=== PATIENT | male | born 1960 | race Caucasian/White ===

== ENCOUNTER 2019-08-11 06:18 | Observation (INO) | payer BC, OTHER ==
[2019-08-11 06:25] LABS: Glucose,Whole Blood 143 mg/dL (75-99)
[2019-08-11] MEDS ORDERED: ASPIRIN 81 MG PO STA (06:33)
--- NOTE | 2019-08-11 06:37 | ED ---
General Adult HPI - General Stated complaint: Near Syncope Time Seen by Provider: 08/11/19 06:26 Source: patient, EMS, RN notes reviewed Mode of arrival: EMS Limitations: no limitations - History of Present Illness Initial comments: This a 59-year-old male presents emergency Department via EMS chief complaint right shoulder pain, difficult breathing, diaphoretic episodes. Patient states that he was at work states that he started having some pain when his right scapula. It is very tight. Patient also states he has pain and right side of his chest Patient states that he tried to stretch it, rubbing against the wall and states that he became very diaphoretic states he did feel very flushed feeling and just not well. Patient went to his office states he sat down symptoms resolved but still does not feel great. Patient states he went back out to work and feels that he did not look well he still has some pain in his right shoulder and states it hurts to take a deep inspiration. Patient denies any significant past medical history though states she does not go to physician a regular basis. He is a daily smoker. He has no complaints of abdominal pain denies any recent long distance traveling no leg pain or leg swelling. - Related Data Home Medications Medication Instructions Recorded Confirmed Carisoprodol [Soma] 350 mg PO HS PRN 06/14/16 06/15/16 HYDROcodone/APAP 7.5-325MG [[place] 1 tab PO Q6HR PRN 06/14/16 06/15/16 7.5-325] Allergies Allergy/AdvReac Type Severity Reaction Status Date / Time No Known Allergies Allergy Verified 06/15/16 07:27 Review of Systems ROS Statement: Those systems with pertinent positive or pertinent negative responses have been documented in the HPI. ROS Other: All systems not noted in ROS Statement are negative. Past Medical History Past Medical History: Musculoskeletal Disorder Additional Past Medical History / Comment(s): back pain History of Any Multi-Drug Resistant Organisms: None Reported Past Surgical History: Orthopedic Surgery Additional Past Surgical History / Comment(s): left hand surg. Past Anesthesia/Blood Transfusion Reactions: No Reported Reaction Smoking Status: Current every day smoker Past Alcohol Use History: Occasional Additional Past Alcohol Use History / Comment(s): smoked on & off since teens- currently 1/2ppd Past Drug Use History: None Reported - Past Family History Mother Family Medical History: No Reported History General Exam General appearance: alert, in no apparent distress Head exam: Present: atraumatic, normocephalic, normal inspection Eye exam: Present: normal appearance, PERRL, EOMI. Absent: scleral icterus, conjunctival injection, periorbital swelling Neck exam: Present: normal inspection, full ROM. Absent: tenderness, meningismus, lymphadenopathy Respiratory exam: Present: normal lung sounds bilaterally. Absent: respiratory distress, wheezes, rales, rhonchi, stridor, chest wall tenderness Cardiovascular Exam: Present: regular rate, normal rhythm, normal heart sounds. Absent: systolic murmur, diastolic murmur, rubs, gallop, clicks GI/Abdominal exam: Present: soft, normal bowel sounds. Absent: distended, tenderness, guarding, rebound, rigid Extremities exam: Present: other (Tenderness to the inferior lateral scapular region patient's full range of motion of upper extremities neurovascular intact) Neurological exam: Present: alert, oriented X3, CN II-XII intact, reflexes normal. Absent: motor sensory deficit Course Vital Signs 08/11/19 08/11/19 06:34 07:43 Temperature 97.7 F Pulse Rate 55 L 62 Respiratory 15 18 Rate Blood Pressure 132/92 120/93 O2 Sat by Pulse 98 98 Oximetry EKG Findings - EKG Comments: EKG Findings:: EKG performed at 17:05 sinus bradycardia rate of 58 [place] 1:30 QRS 98 QT/QTC 406/398 Medical Decision Making - Medical Decision Making Patient will be admitted for near syncopal event, chest pain. Workup this time is negative included negative chest x-ray, troponin EKG. Patient will be placed on heparin repeat cardiac enzymes. - Lab Data Result diagrams: 08/11/19 06:25 08/11/19 06:25 Lab Results 08/11/19 08/11/19 08/11/19 Range/Units 06:25 06:25 06:25 WBC 5.5 (3.8-10.6) k/uL RBC 5.01 (4.30-5.90) m/uL Hgb 16.6 (13.0-17.5) gm/dL Hct 46.8 (39.0-53.0) % MCV 93.4 (80.0-100.0) fL MCH 33.2 (25.0-35.0) pg MCHC 35.5 (31.0-37.0) g/dL RDW 12.4 (11.5-15.5) % Plt Count 173 (150-450) k/uL Neutrophils % 74 % Lymphocytes % 13 % Monocytes % 8 % Eosinophils % 3 % Basophils % 0 % Neutrophils # 4.0 (1.3-7.7) k/uL Lymphocytes # 0.7 L (1.0-4.8) k/uL Monocytes # 0.4 (0-1.0) k/uL Eosinophils # 0.2 (0-0.7) k/uL Basophils # 0.0 (0-0.2) k/uL PT (9.0-12.0) sec INR (<1.2) APTT (22.0-30.0) sec D-Dimer (<0.60) mg/L FEU Sodium 139 (137-145) mmol/L Potassium 4.6 (3.5-5.1) mmol/L Chloride 107 (98-107) mmol/L Carbon Dioxide 24 (22-30) mmol/L Anion Gap 8 mmol/L BUN 18 (9-20) mg/dL Creatinine 1.10 (0.66-1.25) mg/dL Est GFR (CKD-EPI)AfAm 84 (>60 ml/min/1.73 sqM) Est GFR (CKD-EPI)NonAf 73 (>60 ml/min/1.73 sqM) Glucose 149 H (74-99) mg/dL POC Glucose (mg/dL) 143 H (75-99) mg/dL POC Glu Airframe Technician ID Viky, Suze Calcium 9.3 (8.4-10.2) mg/dL Magnesium 2.1 (1.6-2.3) mg/dL Total Bilirubin 1.3 (0.2-1.3) mg/dL AST 26 (17-59) U/L ALT 23 (21-72) U/L Alkaline Phosphatase 50 (38-126) U/L Troponin I (0.000-0.034) ng/mL NT-Pro-B Natriuret Pep pg/mL Total Protein 7.1 (6.3-8.2) g/dL Albumin 4.1 (3.5-5.0) g/dL Lipase 129 (23-300) U/L 1208/11/19 08/11/19 Range/Units 06:25 06:25 06:25 WBC (3.8-10.6) k/uL RBC (4.30-5.90) m/uL Hgb (13.0-17.5) gm/dL Hct (39.0-53.0) % MCV (80.0-100.0) fL MCH (25.0-35.0) pg MCHC (31.0-37.0) g/dL RDW (11.5-15.5) % Plt Count (150-450) k/uL Neutrophils % % Lymphocytes % % Monocytes % % Eosinophils % % Basophils % % Neutrophils # (1.3-7.7) k/uL Lymphocytes # (1.0-4.8) k/uL Monocytes # (0-1.0) k/uL Eosinophils # (0-0.7) k/uL Basophils # (0-0.2) k/uL PT 10.1 (9.0-12.0) sec INR 0.9 (<1.2) APTT 24.8 (22.0-30.0) sec D-Dimer 0.37 (<0.60) mg/L FEU Sodium (137-145) mmol/L Potassium (3.5-5.1) mmol/L Chloride (98-107) mmol/L Carbon Dioxide (22-30) mmol/L Anion Gap mmol/L BUN (9-20) mg/dL Creatinine (0.66-1.25) mg/dL Est GFR (CKD-EPI)AfAm (>60 ml/min/1.73 sqM) Est GFR (CKD-EPI)NonAf (>60 ml/min/1.73 sqM) Glucose (74-99) mg/dL POC Glucose (mg/dL) (75-99) mg/dL POC Glu Airframe Technician ID Calcium (8.4-10.2) mg/dL Magnesium (1.6-2.3) mg/dL Total Bilirubin (0.2-1.3) mg/dL AST (17-59) U/L ALT (21-72) U/L Alkaline Phosphatase (38-126) U/L Troponin I <0.012 (0.000-0.034) ng/mL NT-Pro-B Natriuret Pep 48 pg/mL Total Protein (6.3-8.2) g/dL Albumin (3.5-5.0) g/dL Lipase (23-300) U/L Disposition Clinical Impression: Near syncope, Chest pain Disposition: ADMITTED IP TO THIS HOSP Condition: Fair Referrals: Kenny Maria MD [Primary Care Provider] - 1-2 days
[2019-08-11 06:56] LABS: Basophils % (A) 0 %; Eosinophils # (A) 0.2 k/uL (0-0.7); Eosinophils % (A) 3 %; HCT 46.8 % (39.0-53.0); HGB 16.6 gm/dL (13.0-17.5); Lymphocytes # (A) 0.7 k/uL (1.0-4.8); Lymphocytes % (A) 13 %; MCH 33.2 pg (25.0-35.0); MCHC 35.5 g/dL (31.0-37.0); MCV 93.4 fL (80.0-100.0); Mean Platelet Volume 7.4; Monocytes # (A) 0.4 k/uL (0-1.0); Monocytes % (A) 8 %; Neutrophils % (A) 74 %; Platelet Count 173 k/uL (150-450); RBC 5.01 m/uL (4.30-5.90); RDW 12.4 % (11.5-15.5); WBC 5.5 k/uL (3.8-10.6)
[2019-08-11 07:11] LABS: D-Dimer 0.37 mg/L FEU (<0.60); INR 0.9 (<1.2); Partial Thromboplastin Time 24.8 sec (22.0-30.0); Prothrombin Time 10.1 sec (9.0-12.0)
[2019-08-11 07:18] LABS: Albumin 4.1 g/dL (3.5-5.0); Calcium 9.3 mg/dL (8.4-10.2); Magnesium 2.1 mg/dL (1.6-2.3); Potassium 4.6 mmol/L (3.5-5.1); Total Bilirubin 1.3 mg/dL (0.2-1.3); Total Protein 7.1 g/dL (6.3-8.2)
--- NOTE | 2019-08-11 08:29 | XR ---
EXAMINATION TYPE: XR chest 2V DATE OF EXAM: 08/11/2019 COMPARISON: NONE HISTORY: Sharp right-sided chest pain into shoulder. TECHNIQUE: Frontal and lateral views of the chest are obtained. FINDINGS: There is some chronic parenchymal change without suspicious focal air space opacity, pleur al effusion, or pneumothorax seen. The cardiac silhouette size is within normal limits. The osseou s structures are intact. IMPRESSION: Chronic parenchymal changes without acute pulmonary process.
[2019-08-11] MEDS ORDERED: NITROGLYCERIN SL TABS 0.4 MG TAB SUBLINGUAL PRN (08:43)
[2019-08-11] MEDS ORDERED: HEPARIN SODIUM,PORCINE 5,000 UNIT/ML 1 ML VIAL IV ONE (08:43)
[2019-08-11] MEDS ORDERED: HEPARIN SOD,PORK IN 0.45% NACL 25,000 UNIT in 0.45% NACL 1 250ML.BAG IV SCH (08:45)
[2019-08-11 10:39] LABS: Cholesterol 236 mg/dL (<200); HDL Cholesterol 33 mg/dL (40-60); LDL Cholesterol,Calculated 164 mg/dL (0-99); Triglycerides 197 mg/dL (<150)
--- NOTE | 2019-08-11 10:54 | P.CRDCN ---
History of Present Illness History of present illness: HISTORY OF PRESENTING ILLNESS This is a pleasant 59-year-old male past medical history significant for chronic nicotine dependence. He denies prior history of coronary artery disease, hypertension, dyslipidemia or diabetes mellitus. He presented with chest pain. He does not follow in the office with a horologist for any reason. We have been asked to see him in consultation for chest pain. He states he woke up this morning feeling his normal self and went to work. While at work he had an acute onset of right anterior wall chest pain that radiated through to the right scapular region that was described as sharp in nature associated with feeling light headed and quite diaphoretic. The acute phase lasted about 5 minutes. The light headedness and diaphoresis subsided however the pain persisted. EMS was called and upon arrival toradol was given which he states did take the edge off the pain. The pain is worse on palpation of the right scapula and worse with deep inspiration. He denies shortness of breath, palpitations, nausea or vomiting. DIAGNOSTICS EKG reveals an is bradycardia heart rate 58. Chest xray negative for an acute cardiopulmonary process. Laboratory reviewed, WBC 5.5, hemoglobin 16.6, platelets 173, d-dimer 0.37, sodium 139, potassium 4.6, creatinine 1.1, magnesium 2.1, cardiac enzymes negative 1, NT proBNP 48, LDL 164, triglycerides 197. He takes no daily cardiac medications. REVIEW OF SYSTEMS At the time of my exam: CONSTITUTIONAL: Denies fever or chills. CARDIOVASCULAR: Denies chest pain, shortness of breath, orthopnea, PND or palpitations. RESPIRATORY: Denies cough. GASTROINTESTINAL: Denies abdominal pain, diarrhea, constipation, nausea or vomiting. MUSCULOSKELETAL: Denies myalgias. NEUROLOGIC: Denies numbness, tingling or weakness. ENDOCRINE: Denies fatigue, weight change, polydipsia or polyurina. GENITOURINARY: Denies burning, hematuria or urgency with micturation. HEMATOLOGIC: Denies history of anemia or bleeding. PHYSICAL EXAMINATION Blood pressure 125/81 heart rate 55 afebrile and maintaining oxygen saturaiton on room air. CONSTITUTIONAL: No apparent distress. HEENT: Head is normocephalic. Pupils are equal, round. Sclerae anicteric. Mucous membranes of the mouth are moist. No JVD. No carotid bruit. CHEST EXAMINATION: Lungs are clear to auscultation. No chest wall tenderness is noted on palpation or with deep breathing. HEART EXAMINATION: Regular rate and rhythm. S1, S2 heard. No murmurs, gallops or rub. ABDOMEN: Soft, nontender. Positive bowel sounds. EXTREMITIES: 2+ peripheral pulses, no lower extremity edema and no calf tenderness. NEUROLOGIC EXAMINATION: Patient is awake, alert and oriented x3. ASSESSMENT Chest pain, atypical. Pleuritic and musculoskeletal features Dyslipidemia Chronic nicotine dependence PLAN Pain is atypical for angina with respirophasic and reproducible features. Likely due to underlying musculoskeletal strain. Discontinue heparin infusion. Continue to obtain serial enzymes to rule out an acute event. Obtain 2D echocardiogram and doppler study to assess cardiac structure and function. Recommend initiation of atorvastatin 80m mg daily. Smoking cessation highly recommended. Ongoing medical management and evaluation. Thank you kindly for this consultation. Nurse Practitioner note has been reviewed, I agree with a documented findings and plan of care. Patient was seen and examined. Past Medical History Past Medical History: Musculoskeletal Disorder Additional Past Medical History / Comment(s): back pain History of Any Multi-Drug Resistant Organisms: None Reported Past Surgical History: Orthopedic Surgery Additional Past Surgical History / Comment(s): left hand surg. Past Anesthesia/Blood Transfusion Reactions: No Reported Reaction Smoking Status: Current every day smoker Past Alcohol Use History: Occasional Additional Past Alcohol Use History / Comment(s): smoked on & off since teens- currently 1/2ppd Past Drug Use History: None Reported - Past Family History Mother Family Medical History: No Reported History Medications and Allergies Home Medications Medication Instructions Recorded Confirmed Type No Known Home Medications 08/11/19 08/11/19 History Allergies Allergy/AdvReac Type Severity Reaction Status Date / Time No Known Allergies Allergy Verified 08/11/19 08:56 Physical Exam Vitals: Vital Signs Temp Pulse Pulse Resp BP BP Pulse Ox 08/11/19 10:13 55 L 18 08/11/19 09:37 97.5 F L 55 L 18 125/81 100 08/11/19 09:21 62 18 120/88 98 08/11/19 07:43 62 18 120/93 98 08/11/19 06:34 97.7 F 55 L 15 132/92 98 Intake and Output 08/10/19 08/11/19 08/11/19 22:59 06:59 14:59 Other: Voiding Method Toilet Weight 86.183 kg Results 08/11/19 06:25 08/11/19 06:25 Cardiac Enzymes 08/11/19 08/11/19 Range/Units 06:25 06:25 AST 26 (17-59) U/L Troponin I <0.012 (0.000-0.034) ng/mL Coagulation 08/11/19 Range/Units 06:25 PT 10.1 (9.0-12.0) sec APTT 24.8 (22.0-30.0) sec Lipids 08/11/19 Range/Units 06:25 Triglycerides 197 H (<150) mg/dL Cholesterol 236 H (<200) mg/dL HDL Cholesterol 33 L (40-60) mg/dL CBC 08/11/19 Range/Units 06:25 WBC 5.5 (3.8-10.6) k/uL RBC 5.01 (4.30-5.90) m/uL Hgb 16.6 (13.0-17.5) gm/dL Hct 46.8 (39.0-53.0) % Plt Count 173 (150-450) k/uL Comprehensive Metabolic Panel 08/11/19 Range/Units 06:25 Sodium 139 (137-145) mmol/L Potassium 4.6 (3.5-5.1) mmol/L Chloride 107 (98-107) mmol/L Carbon Dioxide 24 (22-30) mmol/L BUN 18 (9-20) mg/dL Creatinine 1.10 (0.66-1.25) mg/dL Glucose 149 H (74-99) mg/dL Calcium 9.3 (8.4-10.2) mg/dL AST 26 (17-59) U/L ALT 23 (21-72) U/L Alkaline Phosphatase 50 (38-126) U/L Total Protein 7.1 (6.3-8.2) g/dL Albumin 4.1 (3.5-5.0) g/dL Current Medications Generic Name Dose Route Start Last Admin Trade Name Freq PRN Reason Stop Dose Admin Aspirin 325 mg 08/12/19 09:00 Aspirin PO DAILY SU Nitroglycerin 0.4 mg 08/11/19 08:43 Nitrostat SUBLINGUAL Q5M PRN Chest Pain Intake and Output 08/10/19 08/11/19 08/11/19 22:59 06:59 14:59 Other: Voiding Method Toilet Weight 86.183 kg 08/11/19 06:25 08/11/19 06:25
[2019-08-11] MEDS ORDERED: ATORVASTATIN 80 MG TAB PO SCH (11:00)
--- NOTE | 2019-08-11 11:23 | ECHOF ---
Referral Reason:chest pain MEASUREMENTS -------- HEIGHT: 182.9 cm WEIGHT: 86.2 kg BP: 120/93 RVIDd: 3.1 cm (< 3.3) IVSd: 1.0 cm (0.6 - 1.1) LVIDd: 5.3 cm (3.9 - 5.3) LVPWd: 1.2 cm (0.6 - 1.1) IVSs: 1.5 cm LVIDs: 3.8 cm LVPWs: 1.4 cm LA Diam: 3.3 cm (2.7 - 3.8) LAESV Index (A-L): 15.47 ml/m Ao Diam: 3.3 cm (2.0 - 3.7) AV Cusp: 1.5 cm (1.5 - 2.6) LA Diam: 3.5 cm (2.7 - 3.8) MV EXCURSION: 28.807 mm (> 18.000) MV EF SLOPE: 130 mm/s (70 - 150) EPSS: 1.0 cm MV E Nick: 0.67 m/s MV DecT: 176 ms MV A Nick: 0.82 m/s MV E/A Ratio: 0.82 RAP: 5.00 mmHg RVSP: 15.28 mmHg TAPSE: 20.48 mm FINDINGS -------- Sinus rhythm. This was a technically good study. LV size, wall thickness and systolic function are normal, with an EF greater than 55%. The left anita tricular size is normal. The diastolic filling pattern is normal for the age of the patient 9.82. The right ventricle is normal in size. The left atrial size is normal. Normal LA size by volume 22+/-6 ml/m2. The right atrial size is normal. There is mild aortic valve sclerosis. There is no evidence of aortic regurgitation. Mild mitral annular calcification present. Mild mitral regurgitation is present. Mild tricuspid regurgitation present. Right ventricular systolic pressure is normal at < 35 mmHg. There is no evidence of pulmonary hypertension. There is no pulmonic regurgitation present. The aortic root size is normal. There is no pericardial effusion. CONCLUSIONS -------- 1. Sinus rhythm. 2. This was a technically good study. 3. LV size, wall thickness and systolic function are normal, with an EF greater than 55%. 4. The left ventricular size is normal. 5. The diastolic filling pattern is normal for the age of the patient 9.82 6. The right ventricle is normal in size. 7. The left atrial size is normal. 8. Normal LA size by volume 22+/-6 ml/m2. 9. The right atrial size is normal. 10. There is mild aortic valve sclerosis. 11. Mild mitral annular calcification present. 12. Mild mitral regurgitation is present. 13. Mild tricuspid regurgitation present. 14. Right ventricular systolic pressure is normal at < 35 mmHg. 15. There is no evidence of pulmonary hypertension. 16. There is no pulmonic regurgitation present. 17. The aortic root size is normal. 18. There is no pericardial effusion. LAB ENGINEER: Madelin Batista RDCS
[2019-08-11] MEDS ORDERED: KETOROLAC 30 MG/ML 1 ML VIAL IVP PRN (11:48)
[2019-08-11] MEDS ORDERED: KETOROLAC 30 MG/ML 1 ML VIAL IVP SCH (12:00)
[2019-08-11 19:21] VITALS: BP 122/71; PULSE 64; RESP 17; TEMP 97.8
[2019-08-11] MEDS: NICOTINE 14MG/24HR PATCH TRANSDERM SCH ×2 (19:40→19:41)
--- NOTE | 2019-08-11 20:55 | P.HPIM ---
History of Present Illness H&P Date: 08/11/19 Chief Complaint: Dizziness with atypical CP This is a 5-year-old white male with known history of tobacco abuse who came in with right shoulder and right sided chest pain. He had diaphoresis with dizziness with some nausea is also noted. Given his symptomatology, he was ad mitted to rule out any type of cardiac cardiology. Cardiology was consulted and they ended up doing appropriate echocardiogram. The patient's pain was reproducible with palpation to the right side. Most likely some type of muscular skeletal versus pleuritic type pain. Enzymatic elevation was not existent as far as cardiac enzymes and echocardiogram did not show any type of ejection fraction issue. The patient was cleared by cardiology and we will hopefully discontinue cigarettes with the patient and start on appropriate risk reduction Review of Systems Constitutional: Denies chills, Denies fever Eyes: denies blurred vision, denies pain Ears, nose, mouth and throat: Denies headache, Denies sore throat Cardiovascular: Reports as per HPI Respiratory: Reports as per HPI Gastrointestinal: Denies abdominal pain, Denies diarrhea, Denies nausea, Denies vomiting Musculoskeletal: Denies myalgias Integumentary: Denies pruritus, Denies rash Neurological: Denies numbness, Denies weakness Endocrine: Denies fatigue, Denies weight change Past Medical History Past Medical History: Pneumonia Additional Past Medical History / Comment(s): Occasional back pain History of Any Multi-Drug Resistant Organisms: None Reported Past Surgical History: Orthopedic Surgery Additional Past Surgical History / Comment(s): left hand surgery, colonoscopy. Past Anesthesia/Blood Transfusion Reactions: No Reported Reaction Smoking Status: Current every day smoker - Past Family History Mother Family Medical History: Cancer Additional Family Medical History / Comment(s): Mother had breast cancer. Sheis 82 yrs old. Father Additional Family Medical History / Comment(s): Father had "heart problems". He at the age of 80 yrs. Medications and Allergies Home Medications Medication Instructions Recorded Confirmed Type No Known Home Medications 08/11/19 08/11/19 History Allergies Allergy/AdvReac Type Severity Reaction Status Date / Time No Known Allergies Allergy Verified 08/11/19 08:56 Physical Exam Vitals: Vital Signs Temp Pulse Pulse Resp BP BP Pulse Ox 08/11/19 19:20 97.8 F 64 17 122/71 97 08/11/19 16:00 98 F 54 L 18 120/80 99 08/11/19 12:00 58 L 18 08/11/19 11:53 98 F 58 L 18 115/76 99 08/11/19 10:13 55 L 18 08/11/19 09:37 97.5 F L 55 L 18 125/81 100 08/11/19 09:21 62 18 120/88 98 08/11/19 07:43 62 18 120/93 98 08/11/19 06:34 97.7 F 55 L 15 132/92 98 Intake and Output 08/11/19 08/11/19 08/11/19 06:59 14:59 22:59 Other: Voiding Method Toilet Toilet # Voids 2 Weight 86.183 kg 86.183 kg - Constitutional General appearance: no acute distress - EENT Eyes: EOMI - Neck Neck: no lymphadenopathy - Respiratory Respiratory: bilateral: CTA - Cardiovascular Rhythm: regular Heart sounds: normal: S1, S2 Abnormal Heart Sounds: no S3 Gallop - Gastrointestinal General gastrointestinal: soft, no tenderness - Integumentary Integumentary: no cellulitis, no rash - Neurologic Neurologic: CNII-XII intact Results CBC & Chem 7: 08/11/19 06:25 08/11/19 06:25 Labs: Abnormal Lab Results - Last 24 Hours (Table) 08/11/19 08/11/19 08/11/19 Range/Units 06:25 06:25 06:25 Lymphocytes # 0.7 L (1.0-4.8) k/uL Glucose 149 H (74-99) mg/dL POC Glucose (mg/dL) 143 H (75-99) mg/dL Triglycerides (<150) mg/dL Cholesterol (<200) mg/dL LDL Cholesterol, Calc (0-99) mg/dL HDL Cholesterol (40-60) mg/dL 08/11/19 Range/Units 06:25 Lymphocytes # (1.0-4.8) k/uL Glucose (74-99) mg/dL POC Glucose (mg/dL) (75-99) mg/dL Triglycerides 197 H (<150) mg/dL Cholesterol 236 H (<200) mg/dL LDL Cholesterol, Calc 164 H (0-99) mg/dL HDL Cholesterol 33 L (40-60) mg/dL Thrombosis Risk Factor Assmnt - Choose All That Apply Any of the Below Risk Factors Present?: Yes Each Factor Represents 1 point: Age 41-60 years Other Risk Factors: No Other congenital or acquired thrombophilia - If yes, enter type in comment: No Thrombosis Risk Factor Assessment Total Risk Factor Score: 1 Thrombosis Risk Factor Assessment Level: Low Risk Assessment and Plan (1) Tobacco abuse Current Visit: Yes Status: Acute Code(s): Z72.0 - TOBACCO USE SNOMED Code(s): 818676610 (2) Chest pain Current Visit: Yes Status: Acute Code(s): R07.9 - CHEST PAIN, UNSPECIFIED SNOMED Code(s): 97721135 (3) Near syncope Current Visit: Yes Status: Acute Code(s): R55 - SYNCOPE AND COLLAPSE SNOMED Code(s): 969870838 Plan: We'll discharge once cleared by cardiology. Start Lipitor at a high dose for risk reduction. Tobacco cessation with aspirin usage. Prep follow-up with me in 3 days. Time with Patient: Greater than 30
--- NOTE | 2019-08-11 20:59 | P.DS ---
Providers Date of admission: 08/11/19 08:43 Attending physician: Kenny Maria Consults: 08/11/19 08:43 Consult Physician Urgent Consulting Provider: Jordon Aleman Consult Reason/Comments: chest pain,near syncope Do you want consulting provider notified?: Yes Primary care physician: Kenny Maria - Discharge Diagnosis(es) (1) Tobacco abuse Current Visit: Yes Status: Acute (2) Chest pain Current Visit: Yes Status: Acute (3) Near syncope Current Visit: Yes Status: Acute Hospital Course: The patient was admitted for atypical type chest pain with dizziness. The patient was found to have fairly nominal cardiac function and his pain was atypical. The patient will be started on appropriate Lipitor for risk reduction tobacco cessation was discussed at length. The patient will follow-up with me in about 3 days. Patient Condition at Discharge: Fair Plan - Discharge Summary Discharge Rx Participant: No New Discharge Prescriptions: New Atorvastatin [Lipitor] 80 mg PO HS #90 tab Discharge Medication List Atorvastatin [Lipitor] 80 mg PO HS #90 tab 08/11/19 [Rx] Follow up Appointment(s)/Referral(s): Kenny Maria MD [Primary Care Provider] - 3 Days Prudencio Shore MD [STAFF PHYSICIAN] - 2 Weeks Discharge Disposition: HOME SELF-CARE
[2019-08-12] MEDS ORDERED: ASPIRIN 325 MG TAB PO SCH (09:00)
== END 2019-08-11 21:37 | disposition home or self-care (01) ==
LOC: EC 06:18 → 1SOBS 08:43
PROVIDERS: ADMIT Family Medicine; ATTEND Family Medicine
DX: R55 Syncope and collapse (principal); R00.1 Bradycardia, unspecified; R07.89 Other chest pain; E78.5 Hyperlipidemia, unspecified; F17.200 Nicotine dependence, unspecified, uncomplicated; M25.511 Pain in right shoulder; Z87.01 Personal history of pneumonia (recurrent); Z80.3 Family history of malignant neoplasm of breast
CPT/HCPCS: 96375; 96376; 96374; 99285; 36415; 93005; 93306; 85379; 83880; 80061; 80053; 83690; 83735; 84484; 85025; 85610; 85730; 71046; G0378; J1644 ×2; J1885

== ENCOUNTER → 2020-01-27 | Outpatient (CLI) | payer OTHER | END | disposition home or self-care (01) | LOC: LABWHC1 10:50 | PROVIDERS: ATTEND Orthopaedic Surgery Sports Medicine | DX: Z11.59 Encounter for screening for other viral diseases (principal) | CPT/HCPCS: 87635 ==

== ENCOUNTER 2023-02-24 22:09 | Emergency (ER) | payer OTHER ==
--- NOTE | 2023-02-25 00:45 | XR ---
EXAM: XR Chest, 2 Views CLINICAL HISTORY: ITS.REASON XR Reason: SOB TECHNIQUE: Frontal and lateral views of the chest. COMPARISON: No relevant prior studies available. FINDINGS: Lungs: Unremarkable. No consolidation. Pleural space: Unremarkable. No pneumothorax. Heart: Unremarkable. No cardiomegaly. Mediastinum: Unremarkable. Bones/joints: Screw in the distal LEFT clavicle. IMPRESSION: No focal infiltrate.
[2023-02-25] MEDS ORDERED: ACETAMINOPHEN TAB 500 MG TAB PO STA (01:26)
[2023-02-25 01:32] VITALS: TEMP 99.1
[2023-02-25] MEDS ORDERED: SODIUM CHLORIDE 0.9% 1,000 ML IV STA (01:32)
--- NOTE | 2023-02-25 01:32 | ED ---
General Adult HPI - General Chief complaint: Shortness of Breath Stated complaint: SOB Time Seen by Provider: 02/25/23 01:18 Source: patient Mode of arrival: ambulatory - History of Present Illness Initial comments: Dictation was produced using [employer] Mobile dictation software. please excuse any grammatical, word or spelling errors. Chief Complaint: 62-year-old male with nausea. Past medical history presents to emergency department with 1 week of cough History of Present Illness: 62-year-old male he has no significant past medical history. He isn't current every day tobacco user several days he has had a cough. His productive of yellow sputum. Denies any chest pain. Does feel slightly dyspneic. Patient also having fevers. No obvious sick contacts. The ROS documented in this emergency department record has been reviewed and confirmed by me. Those systems with pertinent positive or negative responses have been documented in the HPI. All other systems are other negative and/or noncontributory. - Related Data Previous Rx's Medication Instructions Recorded Atorvastatin [Lipitor] 80 mg PO HS #90 tab 08/11/19 Albuterol Inhaler [Ventolin Hfa 1 - 2 puff INHALATION Q6H PRN #1 02/25/23 Inhaler] each Azithromycin [Zithromax Z Pack] 1 tab PO DIRECTED #6 tab 02/25/23 Allergies Allergy/AdvReac Type Severity Reaction Status Date / Time No Known Allergies Allergy Verified 08/11/19 08:56 Review of Systems ROS Statement: Those systems with pertinent positive or pertinent negative responses have been documented in the HPI. ROS Other: All systems not noted in ROS Statement are negative. Past Medical History Past Medical History: Pneumonia Additional Past Medical History / Comment(s): Occasional back pain History of Any Multi-Drug Resistant Organisms: None Reported Past Surgical History: Orthopedic Surgery Additional Past Surgical History / Comment(s): left hand surgery, colonoscopy. Past Anesthesia/Blood Transfusion Reactions: No Reported Reaction Past Psychological History: No Psychological Hx Reported Smoking Status: Light tobacco smoker Past Alcohol Use History: Occasional, Rare Past Drug Use History: None Reported - Past Family History Mother Family Medical History: Cancer Additional Family Medical History / Comment(s): Mother had breast cancer. Sheis 82 yrs old. Father Additional Family Medical History / Comment(s): Father had "heart problems". He at the age of 80 yrs. General Exam - General Exam Comments Initial Comments: PHYSICAL EXAM: General Impression: Alert and oriented x3, not in acute distress HEENT: Normocephalic atraumatic, extra-ocular movements intact, pupils equal and reactive to light bilaterally, mucous membranes moist. Cardiovascular: Heart regular rate and rhythm Chest: Able to complete full sentences, no retractions, no tachypnea, rhonchi to the left posterior lung base Abdomen: abdomen soft, non-tender, non-distended, no organomegaly Musculoskeletal: Pulses present and equal in all extremities, no peripheral edema Motor: no focal deficits noted Neurological: CN II-XII grossly intact, no focal motor or sensory deficits noted Skin: Intact with no visualized rashes Psych: Normal affect and mood Course Vital Signs 02/24/23 02/25/23 23:31 01:32 Temperature 100.0 F H 99.1 F Pulse Rate 107 H 90 Respiratory 16 20 Rate Blood Pressure 145/81 115/75 O2 Sat by Pulse 96 95 Oximetry Medical Decision Making - Medical Decision Making Was pt. sent in by a medical professional or institution (Dr. PA, LIBRARIAN, urgent care, hospital, or care home...) When possible be specific @ -No Did you speak to anyone other than the patient for history (EMS, parent, family, police, friend...)? What history was obtained from this source @ -Family at bedside states that patient has been coughing Did you review nursing and triage notes (agree or disagree)? Why? @ -I reviewed and agree with nursing and triage notes Were old charts reviewed (outside hosp., previous admission, EMS record, old EKG, old radiological studies, urgent care reports/EKG's, care home records)? Report findings @ -No old charts were reviewed Differential Diagnosis (chest pain, altered mental status, abdominal pain women, abdominal pain men, vaginal bleeding, musculoskeletal, weakness, fever, dyspnea, syncope, headache, dizziness, GI bleed, back pain, seizure, CVA, palpatations, mental health)? @ -Differential Dyspnea: Coronary syndrome, arrhythmia, tamponade, asthma, COPD, pulmonary embolism, pneumonia, pneumothorax, pulmonary effusion, anaphylaxis, diabetic ketoacidosis, flailed chest, pulmonary contusion, diaphragmatic rupture, anemia, neuromuscular, this is not meant to be an all-inclusive list. EKG interpreted by me (3pts min.). @ -None done X-rays interpreted by me (1pt min.). @ -Chest x-ray shows no acute processes CT interpreted by me (1pt min.). @ -None done U/S interpreted by me (1pt. min.). @ -None done What testing was considered but not performed or refused? (CT, X-rays, U/S, lab s)? Why? @ -None What meds were considered but not given or refused? Why? @ -None Did you discuss the management of the patient with other professionals (professionals i.e. , PA, LIBRARIAN, lab, RT, psych nurse, social security assessor, projection camera operator, teacher, contract officer, shoe parts caser)? Give summary @ -No Was smoking cessation discussed for >3mins.? @ -No Was critical care preformed (if so, how long)? @ -No Were there social determinants of health that impacted care today? How? (Homelessness, low income, unemployed, alcoholism, drug addiction, transportation, low edu. Level, literacy, decrease access to med. care, intermediate, rehab)? @ -No Was there de-escalation of care discussed even if they declined (Discuss DNR or withdrawal of care, Hospice)? DNR status @ -No What co-morbidities impacted this encounter? (DM, HTN, Smoking, COPD, CAD, Cancer, CVA, ARF, Chemo, Hep., AIDS, mental health diagnosis, sleep apnea, morbid obesity)? @ -Tobacco abuse Was patient admitted / discharged? Hospital course, mention meds given and route, prescriptions, significant lab abnormalities, going to OR and other pertinent info. @ -38-year-old male presents with clinical flulike symptoms. Has a productive cough yellow sputum. Patient will also having constitutional symptoms. His low-grade temperature of 10. Rest of vital signs within acceptable limits. Physical examination shows well-appearing male however he does have rhonchi to the left posterior lung base. Laboratory evaluation obtained. Leukocytosis of 21.0. Metabolic panel shows mild hyponatremia 131. Viral panel is negative. Patient observed in emergency department for 4 hours and 40 minutes. Patient is stable. Disposition is discussed for to be discharge. Patient given a dose of ceftriaxone and azithromycin. Patient given prescription for antibiotics and a beer inhaler. Patient given return precautions. Undiagnosed new problem with uncertain prognosis? @ -No Drug Therapy requiring intensive monitoring for toxicity (Heparin, Nitro, Insulin, Cardizem)? @ -No Were any procedures done? @ -No Diagnosis/symptom? Acute, or Chronic, or Acute on Chronic? Uncomplicated (without systemic symptoms) or Complicated (systemic symptoms)? @ -1. Community acquired pneumonia Side effects of treatment? @ -No Exacerbation, Progression, or Severe Exacerbation? @ -No Poses a threat to life or bodily function? How? (Chest pain, [place], SD, pneumonia, PE, COPD, DKA, ARF, appy, cholecystitis, CVA, Diverticulitis, Homicidal, Suicidal, threat to staff... and all critical care pts) @ -yes - Lab Data Result diagrams: 02/25/23 01:02/25/23: Lab Results 02/25/23 02/25/23 02/25/23 Range/Units 01:31 01:31 01:31 WBC 21.0 H (3.8-10.6) k/uL RBC 4.60 (4.30-5.90) m/uL Hgb 14.8 (13.0-17.5) gm/dL Hct 43.1 (39.0-53.0) % MCV 93.7 (80.0-100.0) fL MCH 32.3 (25.0-35.0) pg MCHC 34.4 (31.0-37.0) g/dL RDW 12.6 (11.5-15.5) % Plt Count 192 (150-450) k/uL MPV 8.9 Neutrophils % 88 % Lymphocytes % 4 % Monocytes % 6 % Eosinophils % 1 % Basophils % 0 % Neutrophils # 18.4 H (1.3-7.7) k/uL Lymphocytes # 0.9 L (1.0-4.8) k/uL Monocytes # 1.3 H (0-1.0) k/uL Eosinophils # 0.2 (0-0.7) k/uL Basophils # 0.0 (0-0.2) k/uL Sodium 131 L (137-145) mmol/L Potassium 4.0 (3.5-5.1) mmol/L Chloride 100 (98-107) mmol/L Carbon Dioxide 21 L (22-30) mmol/L Anion Gap 10 mmol/L BUN 21 H (9-20) mg/dL Creatinine 1.12 (0.66-1.25) mg/dL Est GFR (CKD-EPI)AfAm 81 (>60 ml/min/1.73 sqM) Est GFR (CKD-EPI)NonAf 70 (>60 ml/min/1.73 sqM) Glucose 155 H (74-99) mg/dL Plasma Lactic Acid Fei 0.8 (0.7-2.0) mmol/L Calcium 8.8 (8.4-10.2) mg/dL Influenza Type A (PCR) (Not Detectd) Influenza Type B (PCR) (Not Detectd) RSV (PCR) (Not Detectd) SARS-CoV-2 (PCR) (Not Detectd) 02/25/23 Range/Units 01:31 WBC (3.8-10.6) k/uL RBC (4.30-5.90) m/uL Hgb (13.0-17.5) gm/dL Hct (39.0-53.0) % MCV (80.0-100.0) fL MCH (25.0-35.0) pg MCHC (31.0-37.0) g/dL RDW (11.5-15.5) % Plt Count (150-450) k/uL MPV Neutrophils % % Lymphocytes % % Monocytes % % Eosinophils % % Basophils % % Neutrophils # (1.3-7.7) k/uL Lymphocytes # (1.0-4.8) k/uL Monocytes # (0-1.0) k/uL Eosinophils # (0-0.7) k/uL Basophils # (0-0.2) k/uL Sodium (137-145) mmol/L Potassium (3.5-5.1) mmol/L Chloride (98-107) mmol/L Carbon Dioxide (22-30) mmol/L Anion Gap mmol/L BUN (9-20) mg/dL Creatinine (0.66-1.25) mg/dL Est GFR (CKD-EPI)AfAm (>60 ml/min/1.73 sqM) Est GFR (CKD-EPI)NonAf (>60 ml/min/1.73 sqM) Glucose (74-99) mg/dL Plasma Lactic Acid Fei (0.7-2.0) mmol/L Calcium (8.4-10.2) mg/dL Influenza Type A (PCR) Not Detected (Not Detectd) Influenza Type B (PCR) Not Detected (Not Detectd) RSV (PCR) Not Detected (Not Detectd) SARS-CoV-2 (PCR) Not Detected (Not Detectd) Disposition Clinical Impression: Pneumonia Disposition: HOME SELF-CARE Condition: Fair Instructions (If sedation given, give patient instructions): Community Acquired Pneumonia (ED) Prescriptions: Albuterol Inhaler [Ventolin Hfa Inhaler] 1 - 2 puff INHALATION Q6H PRN #1 each PRN Reason: Dyspnea Azithromycin [Zithromax Z Pack] 1 tab PO DIRECTED #6 tab Is patient prescribed a controlled substance at d/c from ED?: No Referrals: Kenny Maria MD [Primary Care Provider] - 1-2 days Time of Disposition: 03:07
[2023-02-25 01:55] LABS: Basophils % (A) 0 %; Eosinophils # (A) 0.2 k/uL (0-0.7); Eosinophils % (A) 1 %; HCT 43.1 % (39.0-53.0); HGB 14.8 gm/dL (13.0-17.5); Lymphocytes # (A) 0.9 k/uL (1.0-4.8); Lymphocytes % (A) 4 %; MCH 32.3 pg (25.0-35.0); MCHC 34.4 g/dL (31.0-37.0); MCV 93.7 fL (80.0-100.0); Mean Platelet Volume 8.9; Monocytes # (A) 1.3 k/uL (0-1.0); Monocytes % (A) 6 %; Neutrophils # (A) 18.4 k/uL (1.3-7.7); Neutrophils % (A) 88 %; Platelet Count 192 k/uL (150-450); RDW 12.6 % (11.5-15.5)
[2023-02-25 02:13] LABS: African American GFR (CKD) 81 (>60 ml/min/1.73 sqM); Anion Gap 10 mmol/L; Blood Urea Nitrogen 21 mg/dL (9-20); Calcium 8.8 mg/dL (8.4-10.2); Carbon Dioxide 21 mmol/L (22-30); Chloride 100 mmol/L (98-107); Glucose 155 mg/dL (74-99); Non-African American GFR(CKD) 70 (>60 ml/min/1.73 sqM); Sodium 131 mmol/L (137-145)
[2023-02-25] MEDS ORDERED: cefTRIAXone IN SWFI 1,000 MG/10 ML SYRINGE IVP STA (02:34)
[2023-02-25] MEDS ORDERED: AZITHROMYCIN 500 MG in SODIUM CHLORIDE 0.9% 250 ML IVPB STA (02:34)
[2023-02-25 03:11] VITALS: BP 104/62; PULSE 81; RESP 18
== END 2023-02-25 05:37 | disposition home or self-care (01) ==
LOC: EC 22:09
DX: J18.9 Pneumonia, unspecified organism (principal); F17.200 Nicotine dependence, unspecified, uncomplicated; Z20.822 Contact with and (suspected) exposure to COVID-19
CPT/HCPCS: 36415; 80048; 83605; 85025; 87636; 71046; 99285; 96365; 96366; 96375; 96361; J0456; J0696

== ENCOUNTER → 2023-10-17 | Outpatient (CLI) | payer BC ==
[2023-10-17 15:18] LABS: Basophils # (A) 0.08 X 10*3/uL (0.00-0.10); Basophils % (A) 0.7 %; Eosinophils # (A) 0.11 X 10*3/uL (0.04-0.35); Eosinophils % (A) 0.9 %; HCT 44.8 % (39.6-50.0); HGB 15.3 g/dL (13.0-17.0); Lymphocytes # (A) 1.56 X 10*3/uL (0.90-5.00); MCHC 34.2 g/dL (32.0-37.0); MCV 93.7 FL (80.0-97.0); Monocytes % (A) 7.5 %; NRBC Per 100 WBC 0 X 10*3/uL (0.00-0.01); Neutrophils # (A) 9.21 X 10*3/uL (1.80-7.70); Neutrophils % (A) 76.7 %; Platelet Count 248 X 10*3/uL (140-440); RBC 4.78 X 10*6/uL (4.40-5.60); RDW 13.6 % (11.5-14.5); WBC 12.01 X 10*3/uL (4.50-10.00)
== END | disposition home or self-care (01) ==
LOC: LABPAT 08:59
PROVIDERS: ATTEND Surgery
DX: Z01.818 Encounter for other preprocedural examination (principal); K40.90 Unilateral inguinal hernia, without obstruction or gangrene, not specified as recurrent
CPT/HCPCS: 36415; 85025; 86850; 86900; 86901; 93005

== ENCOUNTER 2023-10-23 07:25 | Day surgery (SDC) | payer BC, OTHER ==
[~2023-10-23 07:25] MED LIST: ACETAMINOPHEN TAB 500 MG TAB PO PRN; LIDOCAINE 1% (10MG/ML) FOR IV START INTRADERMA PRN; METOCLOPRAMIDE 5 MG/ML 2 ML VIAL IVP PRN
[2023-10-23 07:47] VITALS: TEMP 97.8
[2023-10-23] MEDS: MIDAZOLAM 2 MG/2 ML VIAL IVP ONE (07:56)
[2023-10-23] MEDS: LACTATED RINGERS 1,000 ML IV SCH (07:58)
[2023-10-23] MEDS: fentaNYL (PF) 50 MCG/ML 2 ML AMP IVP ONE (07:58)
[2023-10-23] MEDS: DEXAMETHASONE SOD PHOSPHATE 4 MG/ML 1 ML VIAL IV ONE (08:00)
[2023-10-23] MEDS: ONDANSETRON 4 MG/2 ML VIAL IVP ONE (08:00)
[2023-10-23] MEDS: HEPARIN SODIUM,PORCINE 5,000 UNIT/ML 1 ML VIAL SQ PRN (08:06)
[2023-10-23] MEDS: LIDOCAINE 0.5%-EPI 1:200,000 50 ML VIAL SQ ONE (08:14)
[2023-10-23] MEDS ORDERED: PROPOFOL 10 MG/ML 20 ML VIAL IV ONE (08:15)
[2023-10-23] MEDS ORDERED: KETOROLAC 30 MG/ML 1 ML VIAL ONE (08:15)
[2023-10-23] MEDS ORDERED: NEOSTIGMINE 1 MG/ML 10 ML VIAL ONE (08:15)
[2023-10-23] MEDS ORDERED: KETAMINE HCL IN 0.9 % NACL 50 MG/5 ML SYRINGE ONE (08:15)
[2023-10-23] MEDS ORDERED: GLYCOPYRROLATE 0.2 MG/ML 2 ML VIAL ONE (08:15)
[2023-10-23] MEDS ORDERED: HYDROmorphone (PF) 1 MG/ML ONE (08:15)
[2023-10-23] MEDS ORDERED: ROCURONIUM 10 MG/ML (5 ML VIAL) IV ONE (08:15)
[2023-10-23] MEDS ORDERED: LIDOCAINE 1% INJ 10MG/ML (20 ML MDV) ONE (08:15)
[2023-10-23] MEDS ORDERED: ROPIVACAINE 5 MG/ML 30 ML VIAL ONE (08:15)
--- NOTE | 2023-10-23 08:31 | P.ANPRN ---
Procedure Note - Anesthesia - Nerve Block Performed Left Transversus Abdominis Single Indication: Acute Post-Operative Pain, Requested by Surgeon Sedation Type: Sedate with meaningful contact maintained Preparation: Sterile Prep Position: Supine Needle Types: Manuel Needle Gauge: 21 Ultrasound used to visualize needle placement: Yes Ultrasound used to observe medication spread: Yes Injectate: 0.5% Ropivacaine (see comment for volume) (30 mls with Decadron 4 mgs) Blood Aspirated: No Pain Paresthesia on Injection Noted: No Resistance on Injection: Normal Image Stored and Saved: Yes Events: Uneventful and Well Tolerated
--- NOTE | 2023-10-23 09:17 | P.OP ---
Date of Procedure: 10/23/23 Preoperative Diagnosis: Left inguinal hernia Postoperative Diagnosis: Bilateral inguinal hernia Procedure(s) Performed: Laparoscopic robotic assisted pair of bilateral inguinal hernia Anesthesia: CHARLI Surgeon: Zac Napoles Estimated Blood Loss (ml): 5 Pathology: none sent Condition: stable Disposition: PACU Description of Procedure: The patient's placed on the operating table in the supine position. The patient received general anesthesia. The patient's abdomen was prepped and draped in usual sterile fashion. The skin was anesthetized 1% local Xylocaine at the incision sites. Using an 11 blade a skin incision was made at the umbilicus. The fascia was grasped with a Taylor and then the peritoneal cavity was entered with the Veress needle. Position of the Veress needle was confirmed with a positive drop test. After adequate insufflation a 5 mm trocar was placed into the peritoneal cavity. The Laparoscope was placed the peritoneal cavity. And a robotic 8 mm trocar was placed in the right lateral position and then another 8 mm robotic trochars placed in the left lateral position. The original 5 mm trocar was exchanged for a 12 mm trocar. The patient was placed in reverse Trendelenburg and then the patient was docked to the robot. Next the peritoneum over top of the right inguinal hernia was incised and then using blunt and sharp dissection and electrocautery the hernia sac was dissected free from the floor of the inguinal canal. The hernia sac was completely reduced into the peritoneal cavity. And then using the [employer] supervisor car installations mesh the hernia was repaired. The peritoneum was then sutured with 20V lock suture. Next the peritoneum over top of the left inguinal hernia was incised and then using blunt and sharp dissection and electrocautery the hernia sac was dissected free from the floor of the inguinal canal. The hernia sac was completely red uced into the peritoneal cavity. And then using the Pro supervisor car installations mesh the hernia was repaired. The peritoneum was then sutured with 20V lock suture. The patient was then undocked the robot. The needle was withdrawn from the peritoneal cavity. The umbilical trocar site was closed with 0 Ethibond suture. The skin was closed interrupted 3-0 Monocryl suture. Dermabond dressing was applied. Patient was sent to recovery in stable condition.
[2023-10-23] MEDS: HYDROmorphone 0.5 MG/0.5 ML SYRINGE IVP PRN (09:47)
[2023-10-23 10:02] LABS: ALT 19 U/L (4-49); AST 22 U/L (17-59); African American GFR (CKD) >90 (>60 ml/min/1.73 sqM); Albumin 3.3 g/dL (3.5-5.0); Alkaline Phosphatase 67 U/L (38-126); Anion Gap 7 mmol/L; Blood Urea Nitrogen 20 mg/dL (9-20); Calcium 8.5 mg/dL (8.4-10.2); Carbon Dioxide 23 mmol/L (22-30); Chloride 103 mmol/L (98-107); Glucose 193 mg/dL (74-99); Non-African American GFR(CKD) >90 (>60 ml/min/1.73 sqM); Potassium 4.7 mmol/L (3.5-5.1); Sodium 133 mmol/L (137-145); Total Bilirubin 0.7 mg/dL (0.2-1.3); Total Protein 6.1 g/dL (6.3-8.2)
[2023-10-23 10:04] VITALS: RESP 16
[2023-10-23] MEDS: IV FLUID CONTINUATION 1,000 ML IV ONE (10:13)
[2023-10-23 11:35] VITALS: BP 106/73; PULSE 80
== END 2023-10-23 11:55 | disposition home or self-care (01) ==
LOC: OR 07:25
PROVIDERS: ATTEND Surgery
DX: K40.20 Bilateral inguinal hernia, without obstruction or gangrene, not specified as recurrent (principal); F17.210 Nicotine dependence, cigarettes, uncomplicated; Z79.899 Other long term (current) drug therapy; Z98.890 Other specified postprocedural states
CPT/HCPCS: 64488; 80053; 49650; C1781 ×2; J2250; J1644; J1100; J2710; J0690; J2405; J2001; J3010; J1885; J1170 ×2; J2795; J2704

== ENCOUNTER 2023-10-29 15:05 | Inpatient (IN) | payer BC ==
[2023-10-29 16:26] LABS: Basophils % (A) 0 %; Eosinophils # (A) 0.2 k/uL (0-0.7); Eosinophils % (A) 2 %; HGB 14.5 gm/dL (13.0-17.5); Lymphocytes # (A) 1.1 k/uL (1.0-4.8); Lymphocytes % (A) 10 %; MCH 32.5 pg (25.0-35.0); MCHC 35.3 g/dL (31.0-37.0); MCV 92.3 fL (80.0-100.0); Mean Platelet Volume 8.3; Monocytes # (A) 0.8 k/uL (0-1.0); Monocytes % (A) 7 %; Neutrophils # (A) 8.9 k/uL (1.3-7.7); Neutrophils % (A) 79 %; Platelet Count 548 k/uL (150-450); RBC 4.45 m/uL (4.30-5.90); RDW 12.5 % (11.5-15.5); WBC 11.3 k/uL (3.8-10.6)
[2023-10-29 16:34] LABS: ALT 56 U/L (4-49); AST 51 U/L (17-59); African American GFR (CKD) >90 (>60 ml/min/1.73 sqM); Albumin 3.7 g/dL (3.5-5.0); Alkaline Phosphatase 76 U/L (38-126); Anion Gap 8 mmol/L; Blood Urea Nitrogen 16 mg/dL (9-20); Calcium 9.5 mg/dL (8.4-10.2); Carbon Dioxide 27 mmol/L (22-30); Chloride 97 mmol/L (98-107); Glucose 164 mg/dL (74-99); Non-African American GFR(CKD) 84 (>60 ml/min/1.73 sqM); Potassium 5.1 mmol/L (3.5-5.1); Sodium 132 mmol/L (137-145); Total Bilirubin 0.9 mg/dL (0.2-1.3); Total Protein 6.9 g/dL (6.3-8.2)
--- NOTE | 2023-10-29 17:37 | ED ---
Skin/Abscess/FB HPI - General Source: patient, family, RN notes reviewed Mode of arrival: ambulatory Limitations: no limitations <Mikaela Mann - Last Filed: 10/29/23 17:37> <Jasmina Malloy - Last Filed: 10/29/23 20:46> - General Chief complaint: Skin/Abscess/Foreign Body Stated complaint: Abscess Time Seen by Provider: 10/29/23 17:37 - History of Present Illness Initial comments: Patient is a 63-year-old male presenting to ER with a chief complaint of an abscess. It has been there since the end of August. Patient believes it is from a steroid injection. Admits to chills and low-grade fevers. (Mikaela Mann) 63-year-old male presents to the emergency department for evaluation of redness and pain to the left lateral thigh and glute. He states that in August he had a steroid injection in his low back. Since then he has noticed pain and swelling. He states that it is getting significantly worse. He does admit to chills. He has not had any documented fever as he has not taken his temperature. Today he went to see his PCP and was told to come in for further evaluation and possible IV antibiotics. He also states that he recently had hernia surgery around 1 week ago. He states this was performed by Dr. Napoles. He has not had any issues with this. Is having normal bowel movements and passing flatulence. (Jasmina Malloy) - Related Data Home Medications Medication Instructions Recorded Confirmed HYDROcodone/APAP 5-325MG [[place] 1 tab PO Q6HR PRN 10/22/23 10/23/23 5-325] carisoprodoL [Soma] 350 mg PO TID PRN 10/22/23 10/23/23 Previous Rx's Medication Instructions Recorded Acetaminophen Tab [Tylenol] 650 mg PO Q6H #30 tab 10/23/23 Docusate [Colace] 100 mg PO BID #20 capsule 10/23/23 Ibuprofen [Motrin] 600 mg PO Q6HR PRN #40 tab 10/23/23 oxyCODONE HCL [OxyIR] 5 mg PO Q6H PRN 3 Days #10 tab 10/23/23 Allergies Allergy/AdvReac Type Severity Reaction Status Date / Time No Known Allergies Allergy Verified 10/23/23 07:44 Review of Systems ROS Other: All systems not noted in ROS Statement are negative. <Mikaela Mann - Last Filed: 10/29/23 17:37> ROS Other: All systems not noted in ROS Statement are negative. <Jasmina Malloy - Last Filed: 10/29/23 20:46> ROS Statement: Those systems with pertinent positive or pertinent negative responses have been documented in the HPI. Past Medical History Past Medical History: Pneumonia Additional Past Medical History / Comment(s): Occasional back pain History of Any Multi-Drug Resistant Organisms: None Reported Past Surgical History: Hernia Repair, Orthopedic Surgery Additional Past Surgical History / Comment(s): left hand surgery, colonoscopy, left shoulder, Past Anesthesia/Blood Transfusion Reactions: No Reported Reaction Past Psychological History: No Psychological Hx Reported Smoking Status: Light tobacco smoker Past Alcohol Use History: Occasional, Rare Past Drug Use History: None Reported - Past Family History Mother Family Medical History: Cancer Additional Family Medical History / Comment(s): Mother had breast cancer. Sheis 82 yrs old. Father Additional Family Medical History / Comment(s): Father had "heart problems". He at the age of 80 yrs. <Mikaela Mann - Last Filed: 10/29/23 17:37> General Exam Limitations: no limitations <Mikaela Mann - Last Filed: 10/29/23 17:37> Limitations: no limitations General appearance: alert, in no apparent distress Head exam: Present: atraumatic, normocephalic, normal inspection Eye exam: Present: normal appearance, PERRL, EOMI. Absent: scleral icterus, conjunctival injection, periorbital swelling ENT exam: Present: normal exam, mucous membranes moist Neck exam: Present: normal inspection. Absent: tenderness, meningismus, lymphadenopathy Respiratory exam: Present: normal lung sounds bilaterally. Absent: respiratory distress, wheezes, rales, rhonchi, stridor Cardiovascular Exam: Present: regular rate, normal rhythm, normal heart sounds. Absent: systolic murmur, diastolic murmur, rubs, gallop, clicks GI/Abdominal exam: Present: soft, normal bowel sounds. Absent: distended, tenderness, guarding, rebound, rigid Extremities exam: Present: tenderness (Left lateral thigh with induration, warmth, erythema), normal capillary refill, other Neurological exam: Present: alert, oriented X3 Psychiatric exam: Present: normal affect, normal mood Skin exam: Present: warm, dry, intact, erythema (Erythema, warmth, induration to left lateral thigh measuring 8x5"). Absent: normal color <Jasmina Malloy - Last Filed: 10/29/23 20:46> - General Exam Comments Initial Comments: Visual Physical Exam Vital signs reviewed General: Well-appearing, nontoxic, no acute distress. Head: Normocephalic, atraumatic Eyes: PERRLA, EOMI ENT: Airway patent Chest: Nonlabored breathing Skin: No visual rash, normal skin tone Neuro: Alert and oriented 3 Musculoskeletal: No gross abnormalities (Mikaela Mann) Course Vital Signs 10/29/23 15:29 Temperature 97.7 F Pulse Rate 96 Respiratory 18 Rate Blood Pressure 102/68 O2 Sat by Pulse 98 Oximetry Medical Decision Making - Lab Data Result diagrams: 10/29/23 16:11 10/29/23 16:11 <Mikaela Mann - Last Filed: 10/29/23 17:37> - Lab Data Result diagrams: 10/29/23 16:11 10/29/23 16:11 <Jasmina Malloy - Last Filed: 10/29/23 20:46> - Medical Decision Making I performed the quick note portion of this chart. Electronically signed by Mikaela Mann PA-C (Mikaela Mann) Was pt. sent in by a medical professional or institution (DANIELA Coello, [employer], urgent care, hospital, or jail...) When possible be specific @ -Sent in by his primary care provider. Did you speak to anyone other than the patient for history (EMS, parent, family, police, friend...)? What history was obtained from this source @ -No Did you review nursing and triage notes (agree or disagree)? Why? @ -I reviewed and agree with nursing and triage notes Were old charts reviewed (outside hosp., previous admission, EMS record, old EKG, old radiological studies, urgent care reports/EKG's, jail records)? Report findings @ -No old charts were reviewed Differential Diagnosis (chest pain, altered mental status, abdominal pain women, abdominal pain men, vaginal bleeding, weakness, fever, dyspnea, syncope, headache, dizziness, GI bleed, back pain, seizure, CVA, palpatations, mental health, musculoskeletal)? @ -Cellulitis, abscess, this list is not all inclusive EKG interpreted by me (3pts min.). @ -None X-rays interpreted by me (1pt min.). @ -None done CT interpreted by me (1pt min.). @ -None done U/S interpreted by me (1pt. min.). @ -Ultrasound of erythematous and indurated area shows 15 cm fluid collection What testing was considered but not performed or refused? (CT, X-rays, U/S, labs)? Why? @ -None What meds were considered but not given or refused? Why? @ -None Did you discuss the management of the patient with other professionals (professionals i.e. , PA, [employer], lab, RT, psych nurse, social psychologist, customer care professional, teacher, landcare officer, geriatric case manager)? Give summary @ -Case discussed with Dr. Maria who recommended admission of the patient with IV antibiotics. Consultation to infectious disease. Was smoking cessation discussed for >3mins.? @ -No Was critical care preformed (if so, how long)? @ -No Were there social determinants of health that impacted care today? How? (Homelessness, low income, unemployed, alcoholism, drug addiction, transportation, low edu. Level, literacy, decrease access to med. care, nursing home, rehab)? @ -No Was there de-escalation of care discussed even if they declined (Discuss DNR or withdrawal of care, Hospice)? DNR status @ -No What co-morbidities impacted this encounter? (DM, HTN, Smoking, COPD, CAD, Cancer, CVA, ARF, Chemo, Hep., AIDS, mental health diagnosis, sleep apnea, morbid obesity)? @ -None Was patient admitted / discharged? Hospital course, mention meds given and route, prescriptions, significant lab abnormalities, going to OR and other pe rtinent info. @ -Admitted. Patient presented to the emergency department for evaluation of left leg pain, erythema. This is on the lateral aspect of his left leg onto his left glute. Patient was sent in by his primary care provider. Laboratory studies obtained show mild leukocytosis of 11.3, CMP shows sodium 132, chloride 97, lactic acid 0.9. Vital signs stable. Patient does not meet sepsis criteria at this time. Patient provided 1 L normal saline. Ultrasound was obtained of the erythematous and indurated area. There is a 15 cm fluid collection on ultrasound. Case was discussed with Dr. Maria. Patient will be admitted with broad-spectrum antibiotics and consultation to infectious disease. Patient understanding agreeable with plan. Patient stable at time of admission. Case discussed with Dr. Henry. Undiagnosed new problem with uncertain prognosis? @ -No Drug Therapy requiring intensive monitoring for toxicity (Heparin, Nitro, Insulin, Cardizem)? @ -No Were any procedures done? @ -No Diagnosis/symptom? @ -Abscess, surrounding cellulitis Acute, or Chronic, or Acute on Chronic? @ -Acute Uncomplicated (without systemic symptoms) or Complicated (systemic symptoms)? @ -complicated Side effects of treatment? @ -No Exacerbation, Progression, or Severe Exacerbation? @ -No Poses a threat to life or bodily function? How? (Chest pain, [place], [place], pneumonia, PE, COPD, DKA, ARF, appy, cholecystitis, CVA, Diverticulitis, Homicidal, Suicidal, threat to staff... and all critical care pts) @ -No (Jasmina Malloy) - Lab Data Lab Results 10/29/23 10/29/23 10/29/23 Range/Units 16:11 16:11 19:13 WBC 11.3 H (3.8-10.6) k/uL RBC 4.45 (4.30-5.90) m/uL Hgb 14.5 (13.0-17.5) gm/dL Hct 41.0 (39.0-53.0) % MCV 92.3 (80.0-100.0) fL MCH 32.5 (25.0-35.0) pg MCHC 35.3 (31.0-37.0) g/dL RDW 12.5 (11.5-15.5) % Plt Count 548 H (150-450) k/uL MPV 8.3 Neutrophils % 79 % Lymphocytes % 10 % Monocytes % 7 % Eosinophils % 2 % Basophils % 0 % Neutrophils # 8.9 H (1.3-7.7) k/uL Lymphocytes # 1.1 (1.0-4.8) k/uL Monocytes # 0.8 (0-1.0) k/uL Eosinophils # 0.2 (0-0.7) k/uL Basophils # 0.0 (0-0.2) k/uL Sodium 132 L (137-145) mmol/L Potassium 5.1 (3.5-5.1) mmol/L Chloride 97 L (98-107) mmol/L Carbon Dioxide 27 (22-30) mmol/L Anion Gap 8 mmol/L BUN 16 (9-20) mg/dL Creatinine 0.96 (0.66-1.25) mg/dL Est GFR (CKD-EPI)AfAm >90 (>60 ml/min/1.73 sqM) Est GFR (CKD-EPI)NonAf 84 (>60 ml/min/1.73 sqM) Glucose 164 H (74-99) mg/dL Plasma Lactic Acid Fei 0.9 (0.7-2.0) mmol/L Calcium 9.5 (8.4-10.2) mg/dL Total Bilirubin 0.9 (0.2-1.3) mg/dL AST 51 (17-59) U/L ALT 56 H (4-49) U/L Alkaline Phosphatase 76 (38-126) U/L Total Protein 6.9 (6.3-8.2) g/dL Albumin 3.7 (3.5-5.0) g/dL Disposition <Mikaela Mann - Last Filed: 10/29/23 17:37> Is patient prescribed a controlled substance at d/c from ED?: No <Jasmina Malloy - Last Filed: 10/29/23 20:46> Clinical Impression: Cellulitis, Abscess Disposition: ADMITTED IP TO THIS HOSP Condition: Stable Referrals: Kenny Maria MD [Primary Care Provider] - 1-2 days
[2023-10-29] MEDS: SODIUM CHLORIDE 0.9% 1,000 ML IV ONE (19:02)
[2023-10-29] MEDS: HYDROcodone/APAP 5-325MG 1 EACH TAB PO STA (19:03)
--- NOTE | 2023-10-29 20:11 | US ---
EXAMINATION TYPE: US extremity nonvasc mass LT DATE OF EXAM: 10/29/2023 COMPARISON: NONE CLINICAL INDICATION: Male, 63 years old with history of lt lateral thigh ?abscess; Large area on left lateral hip/buttock x 2 months. This area is warm to the touch, tender, and red. Pt states the area has gotten bigger TECHNIQUE: Left lateral hip/buttock scanned FINDINGS: In the area of interest there is a large complex hypoechoic/anechoic mass measuring approximately 15. 7 x 9.5 x 6.7 cm., Showing evidence of posterior wall acoustic enhancement and evidence of through so und transmission. IMPRESSION: Fluidlike collection as indicated.
[2023-10-29] MEDS: KETOROLAC 15 MG/ML 1 ML VIAL IVP STA (20:21)
[2023-10-29] MEDS ORDERED: VANCOMYCIN IV PER PHARMACY 1 EACH MISC MISCELLANE PRN (20:24)
[2023-10-29] MEDS ORDERED: IBUPROFEN 400 MG TAB PO PRN (20:33)
[2023-10-29] MEDS ORDERED: ONDANSETRON 4 MG/2 ML VIAL IVP PRN (20:33)
[2023-10-29] MEDS ORDERED: ACETAMINOPHEN TAB 325 MG TAB PO PRN (20:33)
[2023-10-29] MEDS ORDERED: NALOXONE 0.4 MG/ML 1 ML VIAL IV PRN (20:33)
[2023-10-29] MEDS: CEFEPIME 1 GM in SODIUM CHLORIDE 0.9% 50 ML IVPB STA (20:50)
[2023-10-29] MEDS: SODIUM CHLORIDE 0.9% 1,000 ML IV SCH (20:51)
[2023-10-29] MEDS: VANCOMYCIN 1,500 MG in SODIUM CHLORIDE 0.9% 500 ML 500 ML IVPB ONE (21:38)
[2023-10-29] MEDS: NICOTINE 14MG/24HR PATCH TRANSDERM STA (22:51)
[2023-10-30] MEDS: MORPHINE SULFATE 4 MG/ML SYRINGE IV PRN (05:37)
--- NOTE | 2023-10-30 08:37 | P.HPIM ---
History of Present Illness H&P Date: 10/30/23 Chief Complaint: cellulitis This is a 63-year-old male who was seen in our office yesterday with complaints of redness and pain to the left buttock that was worsening. He was sent to the emergency room for evaluation of cellulitis and abscess. Patient had a recent epidural steroid injection and has since noticed worsening pain, redness and swelling in the left glute. Patient does report chills, unsure of fever. Also recently had hernia surgery with Dr. Napoles. Ultrasound of the area showed a large complex hypoechoic/anechoic mass measuring 15.7 x 9.5 x 6.7 cm. Infectious disease and general surgeon have been consulted. Patient remains on vancomycin. Patient is seen and evaluated laying in bed this morning. He reports pain is well-controlled, but is still unable to lay on the left side comfortably. Further medical history as noted below. Review of Systems Constitutional: Reports chills, Denies fever Cardiovascular: Denies chest pain, Denies dyspnea on exertion Respiratory: Denies cough, Denies dyspnea Gastrointestinal: Denies abdominal pain, Denies nausea, Denies vomiting Musculoskeletal: Reports as per HPI, Denies arm numbness/tingling, Denies leg numbness/tingling Integumentary: Reports as per HPI Neurological: Denies headaches, Denies weakness Past Medical History Past Medical History: Pneumonia Additional Past Medical History / Comment(s): Occasional back pain History of Any Multi-Drug Resistant Organisms: None Reported Past Surgical History: Hernia Repair, Orthopedic Surgery Additional Past Surgical History / Comment(s): left hand surgery, colonoscopy, left shoulder, Past Anesthesia/Blood Transfusion Reactions: No Reported Reaction Past Psychological History: No Psychological Hx Reported Additional Psychological History / Comment(s): Pt has his adult son living with him. He is independent. Smoking Status: Light tobacco smoker Past Alcohol Use History: Occasional, Rare Additional Past Alcohol Use History / Comment(s): smoked on & off since teens- currently 1/2ppd Past Drug Use History: None Reported - Past Family History Mother Family Medical History: Cancer Additional Family Medical History / Comment(s): Mother had breast cancer. Sheis 82 yrs old. Father Additional Family Medical History / Comment(s): Father had "heart problems". He at the age of 80 yrs. Medications and Allergies Home Medications Medication Instructions Recorded Confirmed Type HYDROcodone/APAP 5-325MG [[place] 1 tab PO BID PRN 10/22/23 10/29/23 History 5-325] carisoprodoL [Soma] 350 mg PO BID PRN 10/22/23 10/29/23 History Acetaminophen Tab [Tylenol] 650 mg PO Q6H #30 tab 10/23/23 10/29/23 Rx Docusate [Colace] 100 mg PO BID #20 capsule 10/23/23 10/29/23 Rx Ibuprofen [Motrin] 600 mg PO Q6HR PRN #40 tab 10/23/23 10/29/23 Rx oxyCODONE HCL [OxyIR] 5 mg PO Q6H PRN 3 Days #10 tab 10/23/23 10/29/23 Rx Allergies Allergy/AdvReac Type Severity Reaction Status Date / Time No Known Allergies Allergy Verified 10/29/23 22:41 Physical Exam Vitals: Vital Signs Temp Pulse Pulse Resp BP BP BP 10/30/23 08:24 96.6 F L 84 16 123/72 10/30/23 07:00 98.2 F 81 16 110/70 10/30/23 05:40 98.7 F 88 16 126/78 10/29/23 22:52 98.7 F 89 16 96/63 10/29/23 15:29 97.7 F 96 18 102/68 Pulse Ox 10/30/23 08:24 10/30/23 07:00 99 10/30/23 05:40 98 10/29/23 22:52 97 10/29/23 15:29 98 Intake and Output 10/29/23 10/30/23 10/30/23 22:59 06:59 14:59 Other: Weight 81.647 kg 81.647 kg - Constitutional General appearance: cooperative, no acute distress - EENT Eyes: PERRLA - Neck Neck: no lymphadenopathy, normal ROM, no rigidity - Respiratory Respiratory: bilateral: CTA - Cardiovascular Rhythm: regular Heart sounds: normal: S1, S2 - Gastrointestinal General gastrointestinal: soft, no tenderness - Integumentary Erythema, warmth, and induration to left buttock/lateral thigh - Psychiatric Psychiatric: A&O x's 3, appropriate affect, intact judgment & insight Results CBC & Chem 7: 10/29/23 16:11 10/29/23 16:11 Labs: Abnormal Lab Results - Last 24 Hours (Table) 10/29/23 10/29/23 Range/Units 16:11 16:11 WBC 11.3 H (3.8-10.6) k/uL Plt Count 548 H (150-450) k/uL Neutrophils # 8.9 H (1.3-7.7) k/uL Sodium 132 L (137-145) mmol/L Chloride 97 L (98-107) mmol/L Glucose 164 H (74-99) mg/dL ALT 56 H (4-49) U/L Assessment and Plan (1) Abscess Current Visit: Yes Status: Acute Code(s): L02.91 - CUTANEOUS ABSCESS, UNSPECIFIED SNOMED Code(s): 690449674 (2) Cellulitis Current Visit: Yes Status: Acute Code(s): L03.90 - CELLULITIS, UNSPECIFIED SNOMED Code(s): 727910811 (3) Tobacco abuse Current Visit: No Status: Acute Code(s): Z72.0 - TOBACCO USE SNOMED Code(s): 944946779 Plan: Appreciate input from surgeon and infectious disease. Check CBC and CMP in the morning. Patient seen and evaluated by nurse practitioner, physician in agreement with plan
[2023-10-30] MEDS: VANCOMYCIN 1,500 MG in SODIUM CHLORIDE 0.9% 500 ML 500 ML IVPB SCH (10:23)
[2023-10-30 10:24] LABS: African American GFR (CKD) >90 (>60 ml/min/1.73 sqM); Non-African American GFR(CKD) >90 (>60 ml/min/1.73 sqM)
[2023-10-30] MEDS: KETOROLAC 15 MG/ML 1 ML VIAL IVP PRN (10:24)
[2023-10-30] MEDS: DOCUSATE 100 MG CAP PO SCH (11:08)
--- NOTE | 2023-10-30 13:23 | P.GSCN ---
History of Present Illness Consult date: 10/30/23 History of present illness: CHIEF COMPLAINT: Left hip pain HISTORY OF PRESENT ILLNESS: This is a 63-year-old male who reports increase in left hip pain swelling and redness after receiving a steroid injection in September. Patient denies any diabetes history. Denies any prior history of abscesses. He just recently had a bilateral inguinal hernia repair on October [address] Napoles. Patient denies any fever chills or sweats. Denies any drainage from that left abscess. PAST MEDICAL HISTORY: Pneumonia PAST SURGICAL HISTORY: Bilateral inguinal hernia repair, orthopedic surgery MEDICATIONS: See below ALLERGIES: See below SOCIAL HISTORY: No illicit drug use. Nicotine dependence REVIEW OF SYSTEMS: CONSTITUTIONAL: Denies fever or chills. HEENT: Denies blurred vision, vision changes, or eye pain. Denies hemoptysis CARDIOVASCULAR: Denies chest pain or pressure. RESPIRATORY: No shortness of breath. GASTROINTESTINAL: See HPI for pertinent findings HEMATOLOGIC: Denies bleeding disorders. GENITOURINARY: Denies any blood in urine or increased urinary frequency. SKIN: Denies pruitis. Denies rash. PHYSICAL EXAM: VITAL SIGNS: Reviewed GENERAL: Well-developed in no acute distress. HEENT: No sclera icterus. Extraocular movements grossly intact. Moist buccal mucosa. Head is atraumatic, normocephalic. No nasal drainage. ABDOMEN: Soft. Nondistended. Nontender NEUROLOGIC: Alert and oriented. Cranial nerves II through XII grossly intact. Extremities: Left hip area of induration tenderness with palpation and erythema and fluctuance noted. No drainage LABORATORY DATA: WBC 11.3 Hgb 14.5 platelets 548 Sodium is 132 potassium 5.1 creatinine 0.96 Lactic acid 0.9 IMAGING: Left ultrasound left lateral hip/buttocks large complex hypoechoic mass measuring approximately 15.7 x 9.5 x 6.7 cm ASSESSMENT: 1. Left hip abscess PLAN: -Patient scheduled for incision and drainage of abscess today with Dr. Napoles -Keep patient n.p.o. -Continue antibiotics -Continue pain management Physician Fender Mechanic note has been reviewed by physician. Signing provider agrees with the documented findings, assessment, and plan of care. Past Medical History Past Medical History: Pneumonia Additional Past Medical History / Comment(s): Occasional back pain History of Any Multi-Drug Resistant Organisms: None Reported Past Surgical History: Hernia Repair, Orthopedic Surgery Additional Past Surgical History / Comment(s): left hand surgery, colonoscopy, left shoulder, Past Anesthesia/Blood Transfusion Reactions: No Reported Reaction Past Psychological History: No Psychological Hx Reported Additional Psychological History / Comment(s): Pt has his adult son living with him. He is independent. Smoking Status: Light tobacco smoker Past Alcohol Use History: Occasional, Rare Additional Past Alcohol Use History / Comment(s): smoked on & off since teens-currently 1/2ppd Past Drug Use History: None Reported - Past Family History Mother Family Medical History: Cancer Additional Family Medical History / Comment(s): Mother had breast cancer. Sheis 82 yrs old. Father Additional Family Medical History / Comment(s): Father had "heart problems". He at the age of 80 yrs. Medications and Allergies Home Medications Medication Instructions Recorded Confirmed Type HYDROcodone/APAP 5-325MG [[place] 1 tab PO BID PRN 10/22/23 10/29/23 History 5-325] carisoprodoL [Soma] 350 mg PO BID PRN 10/22/23 10/29/23 History Acetaminophen Tab [Tylenol] 650 mg PO Q6H #30 tab 10/23/23 10/29/23 Rx Docusate [Colace] 100 mg PO BID #20 capsule 10/23/23 10/29/23 Rx Ibuprofen [Motrin] 600 mg PO Q6HR PRN #40 tab 10/23/23 10/29/23 Rx oxyCODONE HCL [OxyIR] 5 mg PO Q6H PRN 3 Days #10 tab 10/23/23 10/29/23 Rx Allergies Allergy/AdvReac Type Severity Reaction Status Date / Time No Known Allergies Allergy Verified 10/29/23 22:41 Surgical - Exam Vital Signs Temp Pulse Resp BP Pulse Ox 97.7 F 96 18 102/68 98 10/29/23 15:29 10/29/23 15:29 10/29/23 15:29 10/29/23 15:29 10/29/23 15:29 Results - Labs 10/29/23 16:11 10/30/23 08:48 Abnormal Lab Results - Last 24 Hours (Table) 10/29/23 10/29/23 Range/Units 16:11 16:11 WBC 11.3 H (3.8-10.6) k/uL Plt Count 548 H (150-450) k/uL Neutrophils # 8.9 H (1.3-7.7) k/uL Sodium 132 L (137-145) mmol/L Chloride 97 L (98-107) mmol/L Glucose 164 H (74-99) mg/dL ALT 56 H (4-49) U/L Diabetes panel 10/29/23 10/30/23 Range/Units 16:11 08:48 Sodium 132 L (137-145) mmol/L Potassium 5.1 (3.5-5.1) mmol/L Chloride 97 L (98-107) mmol/L Carbon Dioxide 27 (22-30) mmol/L BUN 16 (9-20) mg/dL Creatinine 0.96 0.68 (0.66-1.25) mg/dL Glucose 164 H (74-99) mg/dL Calcium 9.5 (8.4-10.2) mg/dL AST 51 (17-59) U/L ALT 56 H (4-49) U/L Alkaline Phosphatase 76 (38-126) U/L Total Protein 6.9 (6.3-8.2) g/dL Albumin 3.7 (3.5-5.0) g/dL Calcium panel 10/29/23 Range/Units 16:11 Calcium 9.5 (8.4-10.2) mg/dL Albumin 3.7 (3.5-5.0) g/dL Pituitary panel 10/29/23 10/30/23 Range/Units 16:11 08:48 Sodium 132 L (137-145) mmol/L Potassium 5.1 (3.5-5.1) mmol/L Chloride 97 L (98-107) mmol/L Carbon Dioxide 27 (22-30) mmol/L BUN 16 (9-20) mg/dL Creatinine 0.96 0.68 (0.66-1.25) mg/dL Glucose 164 H (74-99) mg/dL Calcium 9.5 (8.4-10.2) mg/dL Adrenal panel 10/29/23 10/30/23 Range/Units 16:11 08:48 Sodium 132 L (137-145) mmol/L Potassium 5.1 (3.5-5.1) mmol/L Chloride 97 L (98-107) mmol/L Carbon Dioxide 27 (22-30) mmol/L BUN 16 (9-20) mg/dL Creatinine 0.96 0.68 (0.66-1.25) mg/dL Glucose 164 H (74-99) mg/dL Calcium 9.5 (8.4-10.2) mg/dL Total Bilirubin 0.9 (0.2-1.3) mg/dL AST 51 (17-59) U/L ALT 56 H (4-49) U/L Alkaline Phosphatase 76 (38-126) U/L Total Protein 6.9 (6.3-8.2) g/dL Albumin 3.7 (3.5-5.0) g/dL
[2023-10-30] MEDS: NICOTINE 14MG/24HR PATCH TRANSDERM SCH (16:30)
[2023-10-30] MEDS: LACTATED RINGERS 1,000 ML IV ONE (19:24)
--- NOTE | 2023-10-30 21:42 | P.CONS ---
History of Present Illness - Reason for Consult Consult date: 10/30/23 Leg abscess Requesting physician: Jasmina Malloy - Chief Complaint Left gluteal pain x week - History of Present Illness Patient is a 63-year-old male with a past medical history significant for pneumonia did have history of chronic back pain and apparently did have injection to the left gluteal area beginning of September 2022 patient now presenting to the ER for evaluation of worsening pain to the left gluteal area that has been getting worse over the last 1 week patient describing his pain to be sharp throbbing moderate to severe intensity without radiation worsening of the pain with lying down or any pressure on the area with associated swelling and redness however denies having any open wound or any drainage patient denies having any fever or any chills with the symptoms the patient was brought in via on arrival to the ER the patient was afebrile and no fever has been recorded subsequently patient was not tachycardic hypotensive or hypoxic he did have a white count of 11.3 with a left shift creatinine was 0.96 electrolytes normal liver enzymes normal patient did have an ultrasound concerning for 15.7 X9.5X 6.7 cm fluid collection concerning for possible abscess patient was started on vancomycin infectious disease was consulted for further management of antibiotic therapy Review of Systems Positive point and negatives has been mentioned in the HPI, complete review of systems was performed and all other systems are negative Past Medical History Past Medical History: Pneumonia Additional Past Medical History / Comment(s): Occasional back pain History of Any Multi-Drug Resistant Organisms: None Reported Past Surgical History: Hernia Repair, Orthopedic Surgery Additional Past Surgical History / Comment(s): left hand surgery, colonoscopy, left shoulder, Past Anesthesia/Blood Transfusion Reactions: No Reported Reaction Past Psychological History: No Psychological Hx Reported Additional Psychological History / Comment(s): Pt has his adult son living with him. He is independent. Smoking Status: Light tobacco smoker Past Alcohol Use History: Occasional, Rare Additional Past Alcohol Use History / Comment(s): smoked on & off since teens- currently 1/2ppd Past Drug Use History: None Reported - Past Family History Mother Family Medical History: Cancer Additional Family Medical History / Comment(s): Mother had breast cancer. Sheis 82 yrs old. Father Additional Family Medical History / Comment(s): Father had "heart problems". He at the age of 80 yrs. Medications and Allergies Home Medications Medication Instructions Recorded Confirmed Type HYDROcodone/APAP 5-325MG [[place] 1 tab PO BID PRN 10/22/23 10/29/23 History 5-325] carisoprodoL [S[place]] 350 mg PO BID PRN 10/22/23 10/29/23 History Acetaminophen Tab [Tylenol] 650 mg PO Q6H #30 tab 10/23/23 10/29/23 Rx Docusate [Colace] 100 mg PO BID #20 capsule 10/23/23 10/29/23 Rx Ibuprofen [Motrin] 600 mg PO Q6HR PRN #40 tab 10/23/23 10/29/23 Rx oxyCODONE HCL [OxyIR] 5 mg PO Q6H PRN 3 Days #10 tab 10/23/23 10/29/23 Rx Allergies Allergy/AdvReac Type Severity Reaction Status Date / Time No Known Allergies Allergy Verified 10/29/23 22:41 Physical Exam Vitals: Vital Signs Temp Pulse Pulse Resp BP BP BP 10/30/23 08:24 96.6 F L 84 16 123/72 10/30/23 07:00 98.2 F 81 16 110/70 10/30/23 05:40 98.7 F 88 16 126/78 10/29/23 22:52 98.7 F 89 16 96/63 10/29/23 15:29 97.7 F 96 18 102/68 Pulse Ox 10/30/23 08:24 10/30/23 07:00 99 10/30/23 05:40 98 10/29/23 22:52 97 10/29/23 15:29 98 Intake and Output 10/29/23 10/30/23 10/30/23 22:59 06:59 14:59 Other: Weight 81.647 kg 81.647 kg GENERAL DESCRIPTION: Middle-aged male lying in bed, no distress. No tachypnea or accessory muscle of respiration use. HEENT: Shows Pallor , no scleral icterus. Oral mucous membrane is dry. No pharyngeal erythema or thrush NECK: Trachea central, no thyromegaly. LUNGS: Unlabored breathing. Clear to auscultation anteriorly. No wheeze or crackle. HEART: S1, S2, regular rate and rhythm. No loud murmur ABDOMEN: Soft, no tenderness , guarding or rigidity, left gluteal did have an area of swelling redness induration and tenderness EXTREMITIES: No edema of feet. SKIN: No rash, no masses palpable. NEUROLOGICAL: The patient is awake, alert, oriented x3, mood and affect normal. Results CBC & Chem 7: 10/29/23 16:11 10/30/23 08:48 Labs: Abnormal Lab Results - Last 24 Hours (Table) 10/29/23 10/29/23 Range/Units 16:11 16:11 WBC 11.3 H (3.8-10.6) k/uL Plt Count 548 H (150-450) k/uL Neutrophils # 8.9 H (1.3-7.7) k/uL Sodium 132 L (137-145) mmol/L Chloride 97 L (98-107) mmol/L Glucose 164 H (74-99) mg/dL ALT 56 H (4-49) U/L Assessment and Plan (1) Abscess, gluteal, left Current Visit: Yes Status: Acute Code(s): L02.31 - CUTANEOUS ABSCESS OF BUT TOCK SNOMED Code(s): 87014935 (2) Cellulitis Current Visit: Yes Status: Acute Code(s): L03.90 - CELLULITIS, UNSPECIFIED SNOMED Code(s): 867193419 Plan: 1patient presented to hospital with left pleural area pain swelling redness in this patient who did have evidence of fluid collection today concerning for possible abscess with elevated white count likely from gram-positive skin ashleigh less likely gram-negative infection 2-await surgical drainage and deep culture discussed with the surgeon 3-vancomycin pharmacy to dose target trough of 15 while watching kidney function and Vanco trough closely We will follow on clinical condition and cultures to further adjust medication if needed Thank you for this consultation we will follow the patient along with you Dictation was produced using [employer] dictation software. please excuse any grammatical, word or spelling errors. Time with Patient: Greater than 30
[2023-10-30] MEDS ORDERED: PROPOFOL 10 MG/ML 20 ML VIAL IV ONE (21:44)
[2023-10-30] MEDS ORDERED: DEXAMETHASONE SOD PHOSPHATE 4 MG/ML 1 ML VIAL ONE (21:44)
[2023-10-30] MEDS ORDERED: MIDAZOLAM 2 MG/2 ML VIAL ONE (21:44)
[2023-10-30] MEDS ORDERED: ONDANSETRON 4 MG/2 ML VIAL ONE (21:44)
[2023-10-30] MEDS ORDERED: LIDOCAINE 1% INJ 10MG/ML (20 ML MDV) ONE (21:44)
[2023-10-30] MEDS ORDERED: KETOROLAC 15 MG/ML 1 ML VIAL ONE (21:44)
[2023-10-30] MEDS ORDERED: fentaNYL (PF) 50 MCG/ML 2 ML AMP ONE (21:44)
[2023-10-30] MEDS: IV FLUID CONTINUATION 1,000 ML IV ONE (21:49)
--- NOTE | 2023-10-30 22:18 | P.OP ---
Date of Procedure: 10/30/23 Preoperative Diagnosis: Incisi left upper thigh abscess Postoperative Diagnosis: Left upper thigh abscess Procedure(s) Performed: Incision and drainage of left upper thigh abscess Anesthesia: CHARLI Surgeon: Zac Napoles Estimated Blood Loss (ml): 10 Pathology: other (Culture) Condition: stable Disposition: PACU Description of Procedure: The patient is placed on the operative table in the supine position. He received general endotracheal anesthesia. His left thigh was prepped draped you sterile fashion. A skin incision was made with a 15 blade and then using electrocautery subcu tissue divided. The abscess Was entered. There is approximately 200 cc of purulent fluid in the abscess cavity. This was cultured. The wound was flushed with saline. The wound was then packed with with dry Kerlix. Patient Toller procedure well. He was sent to recovery in stable condition.
[2023-10-30] MEDS: HYDROcodone/APAP 5-325MG 1 EACH TAB PO PRN (23:25)
[2023-10-31 06:45] LABS: HCT 41.4 % (39.0-53.0); HGB 13.6 gm/dL (13.0-17.5); MCH 31.8 pg (25.0-35.0); MCHC 32.8 g/dL (31.0-37.0); MCV 96.8 fL (80.0-100.0); Mean Platelet Volume 8.1; Platelet Count 435 k/uL (150-450); RBC 4.27 m/uL (4.30-5.90); RDW 12.3 % (11.5-15.5); WBC 12.3 k/uL (3.8-10.6)
--- NOTE | 2023-10-31 11:58 | P.PN ---
Subjective Progress Note Date: 10/31/23 Principal diagnosis: Buttock abscess This 63-year-old white male was sent admitted for complicated buttock cellulitis with abscess. Postop day #1 related to incision and drainage. Appreciate input and work from general surgery and infectious disease today. No fever or chills stated. He feels much better after having pressure relief from the abscess removed. Objective - Vital Signs Vital signs: Vital Signs Temp 98.0 F 10/31/23 07:15 Pulse 67 10/31/23 07:15 Resp 15 10/31/23 07:15 BP 97/69 10/31/23 07:15 Pulse Ox 96 10/31/23 07:15 FiO2 Intake & Output 10/30/23 10/31/23 10/31/23 18:59 06:59 18:59 Weight 81.647 kg Other: # Voids 1 4 - Constitutional General appearance: Present: average body habitus, cooperative, no acute distress - EENT Eyes: Absent: abnormal pupil - Neck Neck: Absent: lymphadenopathy - Respiratory Respiratory: bilateral: diminished - Cardiovascular Rhythm: regular Heart sounds: normal: S1, S2 Abnormal Heart Sounds: Absent: S3 Gallop - Gastrointestinal General gastrointestinal: Present: soft. Absent: tenderness - Labs CBC & Chem 7: 10/31/23 05:45 10/30/23 08:48 Labs: Abnormal Lab Results - Last 24 Hours (Table) 10/31/23 Range/Units 05:45 WBC 12.3 H (3.8-10.6) k/uL RBC 4.27 L (4.30-5.90) m/uL Microbiology - Last 24 Hours (Table) 10/29/23 19:11 Blood Culture - Preliminary Blood 10/29/23 18:40 Blood Culture - Preliminary Blood Assessment and Plan (1) Abscess, gluteal, left Current Visit: Yes Status: Acute Code(s): L02.31 - CUTANEOUS ABSCESS OF BUTTOCK SNOMED Code(s): 06600207 (2) Cellulitis Current Visit: Yes Status: Acute Code(s): L03.90 - CELLULITIS, UNSPECIFIED SNOMED Code(s): 456168241 (3) Tobacco abuse Current Visit: No Status: Acute Code(s): Z72.0 - TOBACCO USE SNOMED Code(s): 638078051 Plan: Continue packing and appropriate wound care. Await culture and sensitivity from abscess culture. Pain control otherwise. Check CBC and CMP in a.m.
--- NOTE | 2023-10-31 15:08 | P.PN ---
Subjective Progress Note Date: 10/31/23 CHIEF COMPLAINT: Left upper thigh abscess HISTORY OF PRESENT ILLNESS: Patient status post incision and drainage of left upper thigh abscess. Pain has improved greatly. Decreased erythema. Patient had a low-grade temp of 100.2 last night denies any nausea or vomiting. WBC 12.3 BP low at 97/63 PHYSICAL EXAM: VITAL SIGNS: Reviewed. GENERAL: Well-developed in no acute distress. ABDOMEN: Soft. Nondistended. Nontender. NEUROLOGIC: Alert and oriented. Cranial nerves II through XII grossly intact. SKIN: Left thigh abscess improved erythema. Less tender with palpation. Area is packed dressing is saturated with serosanguineous fluid ASSESSMENT: 1. Left thigh abscess status post incision and drainage PLAN: -Continue antibiotics per ID -Follow-up on culture results -Local wound care per ID -Encourage patient to ambulate -Patient can shower -Continue IV fluids at 130 -Continue regular diet -DVT prophylaxis subcu heparin Physician Job Placement Specialist note has been reviewed by physician. Signing provider agrees with the documented findings, assessment, and plan of care. Objective - Vital Signs Vital signs: Vital Signs Temp 97.9 F 10/31/23 14:02 Pulse 85 10/31/23 14:02 Resp 16 10/31/23 14:02 BP 97/63 10/31/23 14:02 Pulse Ox 98 10/31/23 14:02 FiO2 Intake & Output 10/30/23 10/31/23 10/31/23 18:59 06:59 18:59 Weight 81.647 kg Other: # Voids 1 4 3 - Labs CBC & Chem 7: 10/31/23 05:45 10/30/23 08:48 Labs: Abnormal Lab Results - Last 24 Hours (Table) 10/31/23 Range/Units 05:45 WBC 12.3 H (3.8-10.6) k/uL RBC 4.27 L (4.30-5.90) m/uL Microbiology - Last 24 Hours (Table) 10/29/23 19:11 Blood Culture - Preliminary Blood 10/29/23 18:40 Blood Culture - Preliminary Blood
[2023-10-31] MEDS: SODIUM CHLORIDE 0.9% 500 ML 500 ML IV ONE (18:04)
[2023-10-31] MEDS: HEPARIN SODIUM,PORCINE 5,000 UNIT/ML 1 ML VIAL SQ SCH (20:35)
[2023-11-01 08:03] LABS: ALT 28 U/L (4-49); AST 26 U/L (17-59); African American GFR (CKD) >90 (>60 ml/min/1.73 sqM); Albumin 2.5 g/dL (3.5-5.0); Alkaline Phosphatase 65 U/L (38-126); Anion Gap 5 mmol/L; Blood Urea Nitrogen 19 mg/dL (9-20); Carbon Dioxide 21 mmol/L (22-30); Chloride 107 mmol/L (98-107); Globulin 2.5 g/dL; Glucose 259 mg/dL (74-99); Non-African American GFR(CKD) >90 (>60 ml/min/1.73 sqM); Potassium 4.6 mmol/L (3.5-5.1); Sodium 133 mmol/L (137-145); Total Bilirubin 0.3 mg/dL (0.2-1.3)
[2023-11-01] MEDS: HYDROmorphone 1 MG/ML 1 ML SYRINGE IVP PRN (08:35)
--- NOTE | 2023-11-01 08:43 | P.PN ---
Subjective Progress Note Date: 11/01/23 Principal diagnosis: cellulitis/abscess This is a 63-year-old male who was seen in our office with complaints of redness and pain to the left buttock that was worsening. He was sent to the emergency room for evaluation of cellulitis and abscess. Patient had a recent epidural s teroid injection and has since noticed worsening pain, redness and swelling in the left glute. Patient does report chills, unsure of fever. Also recently had hernia surgery with Dr. Napoles. Ultrasound of the area showed a large complex hypoechoic/anechoic mass measuring 15.7 x 9.5 x 6.7 cm. Infectious disease and general surgeon have been consulted. Patient remains on vancomycin. 11/01/2023 Patient seen and evaluated sitting in chair at bedside this morning. He reports pain is much improved. He did undergo an I&D on Sunday with Dr. Napoles. Cultures are still pending. This morning on blood work patient's blood sugar was elevated at 259, previously had no past history of diabetes. Objective - Vital Signs Vital signs: Vital Signs Temp 97.4 F L 11/01/23 02:10 Pulse 71 11/01/23 02:10 Resp 16 11/01/23 02:10 BP 107/65 11/01/23 02:10 Pulse Ox 96 11/01/23 02:10 FiO2 Intake & Output 10/31/23 11/01/23 11/01/23 18:59 06:59 18:59 Other: Voiding Method Toilet # Voids 3 2 - Constitutional General appearance: Present: cooperative, no acute distress - EENT Eyes: Present: PERRLA - Neck Neck: Present: normal ROM. Absent: lymphadenopathy, rigidity - Respiratory Respiratory: bilateral: CTA - Cardiovascular Rhythm: regular Heart sounds: normal: S1, S2 - Gastrointestinal General gastrointestinal: Present: soft. Absent: tenderness - Integumentary Integumentary Comment(s): Dressing dry and intact to left glute and thigh - Psychiatric Psychiatric: Present: A&O x's 3, appropriate affect, intact judgment & insight - Labs CBC & Chem 7: 10/31/23 05:45 11/01/23 07:15 Labs: Abnormal Lab Results - Last 24 Hours (Table) 11/01/23 Range/Units 07:15 Sodium 133 L (137-145) mmol/L Carbon Dioxide 21 L (22-30) mmol/L Glucose 259 H (74-99) mg/dL Calcium 8.0 L (8.4-10.2) mg/dL Total Protein 5.0 L (6.3-8.2) g/dL Albumin 2.5 L (3.5-5.0) g/dL Microbiology - Last 24 Hours (Table) 10/29/23 19:11 Blood Culture - Preliminary Blood 10/29/23 18:40 Blood Culture - Preliminary Blood 10/30/23 22:45 Gram Stain - Preliminary Thigh - Left Assessment and Plan (1) Abscess Current Visit: Yes Status: Acute Code(s): L02.91 - CUTANEOUS ABSCESS, UNSPECIFIED SNOMED Code(s): 798164172 (2) Cellulitis Current Visit: Yes Status: Acute Code(s): L03.90 - CELLULITIS, UNSPECIFIED SNOMED Code(s): 408651198 (3) Tobacco abuse Current Visit: No Status: Acute Code(s): Z72.0 - TOBACCO USE SNOMED Code(s): 911593175 (4) Hyperglycemia Current Visit: Yes Status: Acute Code(s): R73.9 - HYPERGLYCEMIA, UNSPECIFIED SNOMED Code(s): 66073839 Plan: Will order hemoglobin A1C Start patient on Accu-Cheks before meals and at bedtime Start sliding scale insulin Check CBC and CMP in the morning. Await final recommendations from infectious disease for discharge antibiotics Anticipate disharge in the next 24 to 48 hours Patient seen and evaluated by nurse practitioner, physician in agreement with plan
[2023-11-01] MEDS: VANCOMYCIN TROUGH DUE 1 EACH MISC MISCELLANE ONE (10:30)
[2023-11-01 10:51] LABS: HCT 31.5 % (39.6-50.0); HGB 10.9 g/dL (13.0-17.0); MCH 32.1 pg (27.0-32.0); MCHC 34.6 g/dL (32.0-37.0); MCV 92.6 FL (80.0-97.0); Mean Platelet Volume 10.4 FL (9.5-12.2); NRBC Per 100 WBC 0 X 10*3/uL (0.00-0.01); Platelet Count 468 X 10*3/uL (140-440); RDW 13.2 % (11.5-14.5); WBC 9.46 X 10*3/uL (4.50-10.00)
--- NOTE | 2023-11-01 12:05 | P.PN ---
Subjective Progress Note Date: 10/31/23 Principal diagnosis: Reason for follow-up is left gluteal/upper thigh abscess Patient is a 63-year-old male with a past medical history significant for pneumonia did have history of chronic back pain and apparently did have injection to the left gluteal area beginning of September 2022 patient now presenting to the ER for evaluation of worsening pain to the left gluteal area, patient was diagnosed with an abscess and the patient is status post surgical drainage of the left upper thigh abscess completed on 10/30/2023 On today's evaluation that is 10/31/2023, Patient is afebrile patient is currently on room air and denies having any shortness of breath, the patient denies any chest pain or cough, the patient denies any nausea vomiting did not have any abdominal pain and no diarrhea, the patient pain to the left upper thigh/gluteal area has decreased in intensity. Patient white count is 12.3 creatinine 0.68 cultures currently growing blood culture so far negative Objective - Vital Signs Vital signs: Vital Signs Temp 98.0 F 10/31/23 07:15 Pulse 67 10/31/23 07:15 Resp 15 10/31/23 07:15 BP 97/69 10/31/23 07:15 Pulse Ox 96 10/31/23 07:15 FiO2 Intake & Output 10/30/23 10/31/23 10/31/23 18:59 06:59 18:59 Weight 81.647 kg Other: # Voids 1 4 - Exam GENERAL DESCRIPTION: Middle-age male lying in bed in no distress RESPIRATORY SYSTEM: Unlabored breathing , decreased breath sounds at bases HEART: S1 S2 regular rate and rhythm , ABDOMEN: Soft , no tenderness EXTREMITIES: Left upper thigh/gluteal area wound is currently dressed - Labs CBC & Chem 7: 11/01/23 07:15 11/01/23 07:15 Labs: Abnormal Lab Results - Last 24 Hours (Table) 10/31/23 Range/Units 05:45 WBC 12.3 H (3.8-10.6) k/uL RBC 4.27 L (4.30-5.90) m/uL Microbiology - Last 24 Hours (Table) 10/29/23 19:11 Blood Culture - Preliminary Blood 10/29/23 18:40 Blood Culture - Preliminary Blood Assessment and Plan (1) Abscess, gluteal, left Current Visit: Yes Status: Acute Code(s): L02.31 - CUTANEOUS ABSCESS OF BUTTOCK SNOMED Code(s): 71930395 (2) Cellulitis Current Visit: Yes Status: Acute Code(s): L03.90 - CELLULITIS, UNSPECIFIED SNOMED Code(s): 009640724 (3) Abscess Current Visit: Yes Status: Acute Code(s): L02.91 - CUTANEOUS ABSCESS, UNSPECIFIED SNOMED Code(s): 618350543 Plan: 1patient presented to hospital with left pleural area pain swelling redness in this patient who did have evidence of fluid collection today concerning for possible abscess with elevated white count likely from gram-positive skin ashleigh less likely gram-negative infection 2-patient is status post surgical drainage and cultures are currently pending 3-patient to continue with vancomycin pharmacy to dose target trough of 15 while waiting for the culture to finalize Dictation was produced using [employer] dictation software. please excuse any grammatical, word or spelling errors. Time with Patient: Less than 30
[2023-11-01 12:29] LABS: Glucose,Whole Blood 231 mg/dL (70-110)
[2023-11-01] MEDS: INSULIN ASPART (NovoLOG) 100 UNIT/ML VIAL SQ SCH (12:51)
--- NOTE | 2023-11-01 14:25 | P.PN ---
Subjective Progress Note Date: 11/01/23 CHIEF COMPLAINT: Left upper thigh abscess HISTORY OF PRESENT ILLNESS: Patient status post incision and drainage of left upper thigh abscess. Patient does report pain in the left hip but improvement since surgery. Followed by infectious disease. Afebrile. BP improved at 114/74. Patient did receive fluid bolus yesterday afternoon. WBC normalized at 9.46. Elevated blood sugar 231 patient reports tolerating diet. Culture growing presumptive Staph aureus PHYSICAL EXAM: VITAL SIGNS: Reviewed. GENERAL: Well-developed in no acute distress. ABDOMEN: Soft. Nondistended. Nontender. NEUROLOGIC: Alert and oriented. Cranial nerves II through XII grossly intact. SKIN: Left thigh abscess improved erythema. Less tender with palpation. Area is packed dressing is saturated with serosanguineous fluid ASSESSMENT: 1. Left thigh abscess status post incision and drainage PLAN: -Continue antibiotics per ID -Follow-up on culture results -Local wound care per ID -Encourage patient to ambulate -Patient can shower -Continue regular diet -Discontinue IV fluids -DVT prophylaxis subcu heparin Physician Cook Helper Dessert note has been reviewed by physician. Signing provider agrees with the documented findings, assessment, and plan of care. Objective - Vital Signs Vital signs: Vital Signs Temp 98.2 F 11/01/23 14:09 Pulse 56 L 11/01/23 14:09 Resp 18 11/01/23 14:09 BP 114/74 11/01/23 14:09 Pulse Ox 98 11/01/23 14:09 FiO2 Intake & Output 10/31/23 11/01/23 11/01/23 18:59 06:59 18:59 Intake Total 480 Balance 480 Intake: Oral 480 Other: Voiding Method Toilet Toilet # Voids 3 2 2 - Labs CBC & Chem 7: 11/01/23 07:15 11/01/23 07:15 Labs: Abnormal Lab Results - Last 24 Hours (Table) 11/01/23 11/01/23 11/01/23 Range/Units 07:15 07:15 12:18 RBC 3.40 L (4.40-5.60) X 10*6/uL Hgb 10.9 L (13.0-17.0) g/dL Hct 31.5 L (39.6-50.0) % MCH 32.1 H (27.0-32.0) pg Plt Count 468 H (140-440) X 10*3/uL Sodium 133 L (137-145) mmol/L Carbon Dioxide 21 L (22-30) mmol/L Glucose 259 H (74-99) mg/dL POC Glucose (mg/dL) 231 H (70-110) mg/dL Calcium 8.0 L (8.4-10.2) mg/dL Total Protein 5.0 L (6.3-8.2) g/dL Albumin 2.5 L (3.5-5.0) g/dL Microbiology - Last 24 Hours (Table) 10/30/23 22:45 Gram Stain - Preliminary Thigh - Left Wound Culture - Preliminary Presumptive Staph aureus 10/29/23 19:11 Blood Culture - Preliminary Blood 10/29/23 18:40 Blood Culture - Preliminary Blood
--- NOTE | 2023-11-01 14:31 | P.PN ---
Subjective Progress Note Date: 11/01/23 Principal diagnosis: Reason for follow-up is left gluteal/upper thigh abscess Patient is a 63-year-old male with a past medical history significant for pneumonia did have history of chronic back pain and apparently did have injection to the left gluteal area beginning of September 2022 patient now presenting to the ER for evaluation of worsening pain to the left gluteal area, patient was diagnosed with an abscess and the patient is status post surgical drainage of the left upper thigh abscess completed on 10/30/2023 On today's evaluation that is 11/01/2023,the patient denies any fever or any chills, patient is breathing comfortably on room air, the patient denies chest pain shortness of breath and no significant cough, patient denies abdominal pain, no nausea vomiting or diarrhea. Patient pain to the left gluteal area has decreased in intensity. Patient white count normalized to 9.46, creatinine 0.67 Vanco trough 12.1 culture with presumptive Staph aureus blood culture negative Objective - Vital Signs Vital signs: Vital Signs Temp 97.7 F 11/01/23 08:53 Pulse 60 11/01/23 08:53 Resp 18 11/01/23 08:53 BP 117/76 11/01/23 08:53 Pulse Ox 100 11/01/23 08:53 FiO2 Intake & Output 10/31/23 11/01/23 11/01/23 18:59 06:59 18:59 Other: Voiding Method Toilet # Voids 3 2 - Exam GENERAL DESCRIPTION: Middle-age male lying in bed in no distress RESPIRATORY SYSTEM: Unlabored breathing , decreased breath sounds at bases HEART: S1 S2 regular rate and rhythm , ABDOMEN: Soft , no tenderness EXTREMITIES: Left upper thigh/gluteal area wound is significantly deep but clean surrounding redness induration has improved - Labs CBC & Chem 7: 11/01/23 07:15 11/01/23 07:15 Labs: Abnormal Lab Results - Last 24 Hours (Table) 11/01/23 11/01/23 Range/Units 07:15 07:15 RBC 3.40 L (4.40-5.60) X 10*6/uL Hgb 10.9 L (13.0-17.0) g/dL Hct 31.5 L (39.6-50.0) % MCH 32.1 H (27.0-32.0) pg Plt Count 468 H (140-440) X 10*3/uL Sodium 133 L (137-145) mmol/L Carbon Dioxide 21 L (22-30) mmol/L Glucose 259 H (74-99) mg/dL Calcium 8.0 L (8.4-10.2) mg/dL Total Protein 5.0 L (6.3-8.2) g/dL Albumin 2.5 L (3.5-5.0) g/dL Microbiology - Last 24 Hours (Table) 10/30/23 22:45 Gram Stain - Preliminary Thigh - Left Wound Culture - Preliminary Presumptive Staph aureus 10/29/23 19:11 Blood Culture - Preliminary Blood 10/29/23 18:40 Blood Culture - Preliminary Blood Assessment and Plan (1) Abscess, gluteal, left Current Visit: Yes Status: Acute Code(s): L02.31 - CUTANEOUS ABSCESS OF BUTTOCK SNOMED Code(s): 36423143 (2) Cellulitis Current Visit: Yes Status: Acute Code(s): L03.90 - CELLULITIS, UNSPECIFIED SNOMED Code(s): 973918678 (3) Abscess Current Visit: Yes Status: Acute Code(s): L02.91 - CUTANEOUS ABSCESS, UNSPECIFIED SNOMED Code(s): 217759774 Plan: 1patient presented to hospital with left pleural area pain swelling redness in this patient who did have evidence of fluid collection today concerning for possible abscess with elevated white count likely from gram-positive skin ashleigh less likely gram-negative infection 2-patient is status post surgical drainage and cultures are currently growing Staph aureus with sensitivities pending blood culture so far negative 3-patient to continue with vancomycin pharmacy to dose target trough of 15 while waiting for the culture to finalize, will benefit from wound VAC to the wound because of the depth Dictation was produced using [employer] software. please excuse any grammatical, word or spelling errors. Time with Patient: Less than 30
[2023-11-01 17:44] LABS: Glucose,Whole Blood 196 mg/dL (70-110)
[2023-11-01] MEDS: NICOTINE 14MG/24HR PATCH TRANSDERM SCH (17:45)
[2023-11-01 20:07] LABS: Glucose,Whole Blood 221 mg/dL (70-110)
[2023-11-02 06:14] LABS: Glucose,Whole Blood 223 mg/dL (70-110)
[2023-11-02] MEDS: metFORMIN 500 MG TAB PO SCH (08:25)
[2023-11-02 10:45] LABS: HCT 35.5 % (39.6-50.0); HGB 12.4 g/dL (13.0-17.0); MCH 31.6 pg (27.0-32.0); MCHC 34.9 g/dL (32.0-37.0); MCV 90.3 FL (80.0-97.0); Mean Platelet Volume 10.3 FL (9.5-12.2); NRBC Per 100 WBC 0 X 10*3/uL (0.00-0.01); Platelet Count 539 X 10*3/uL (140-440); RBC 3.93 X 10*6/uL (4.40-5.60); WBC 9.22 X 10*3/uL (4.50-10.00)
[2023-11-02 10:59] LABS: Glucose,Whole Blood 138 mg/dL (70-110)
[2023-11-02 11:23] LABS: ALT 31 U/L (10-49); AST 24 U/L (14-35); Albumin 3.1 g/dL (3.8-4.9); Albumin/Globulin Ratio 1.19 Ratio (1.60-3.17); Alkaline Phosphatase 55 U/L (41-126); BUN/Creat Ratio 11.56 Ratio (12.00-20.00); Blood Urea Nitrogen 10.4 mg/dL (9.0-27.0); Calcium 9.1 mg/dL (8.7-10.3); Carbon Dioxide 26.3 mmol/L (21.6-31.8); Chloride 99 mmol/L (96-109); Globulin 2.6 g/dL (1.6-3.3); Glucose 177 mg/dL (70-110); Potassium 4.5 mmol/L (3.5-5.5); Sodium 135 mmol/L (135-145); Total Bilirubin 0.4 mg/dL (0.3-1.2); Total Protein 5.7 g/dL (6.2-8.2)
--- NOTE | 2023-11-02 13:33 | P.PN ---
Subjective Progress Note Date: 11/02/23 CHIEF COMPLAINT: Left upper thigh abscess HISTORY OF PRESENT ILLNESS: Patient is POD #3 status post incision and drainage of left upper thigh abscess. Patient has wound VAC in place. Patient's pain is controlled. Afebrile. WBC 9.22 Hgb 12.4 culture growing MSSA. Possible discharge today PHYSICAL EXAM: VITAL SIGNS: Reviewed. GENERAL: Well-developed in no acute distress. ABDOMEN: Soft. Nondistended. Nontender. NEUROLOGIC: Alert and oriented. Cranial nerves II through XII grossly intact. SKIN: Left thigh abscess with wound VAC in place ASSESSMENT: 1. Left thigh abscess status post incision and drainage PLAN: -Patient can be discharged from surgical standpoint -Discharge antibiotics per ID service -Wound VAC per ID service -DVT prophylaxis subcu heparin Physician [employer] Counselor note has been reviewed by physician. Signing provider agrees with the documented findings, assessment, and plan of care. Objective - Vital Signs Vital signs: Vital Signs Temp 97.6 F 11/02/23 09:18 Pulse 71 11/02/23 09:18 Resp 14 11/02/23 09:18 BP 134/84 11/02/23 09:18 Pulse Ox 98 11/02/23 09:18 FiO2 Intake & Output 11/01/23 11/02/23 11/02/23 18:59 06:59 18:59 Intake Total 600 240 Balance 600 240 Intake: Oral 600 240 Other: Voiding Method Toilet Toilet Toilet # Voids 4 3 # Bowel Movements 1 - Labs CBC & Chem 7: 11/02/23 07:00 11/02/23 07:00 Labs: Abnormal Lab Results - Last 24 Hours (Table) 11/01/23 11/01/23 11/01/23 Range/Units 07:15 17:37 20:05 RBC (4.40-5.60) X 10*6/uL Hgb (13.0-17.0) g/dL Hct (39.6-50.0) % Plt Count (140-440) X 10*3/uL BUN/Creatinine Ratio (12.00-20.00) Ratio Glucose (70-110) mg/dL POC Glucose (mg/dL) 196 H 221 H (70-110) mg/dL Hemoglobin A1c 7.8 H (<=6.0) % Total Protein (6.2-8.2) g/dL Albumin (3.8-4.9) g/dL Albumin/Globulin Ratio (1.60-3.17) Ratio 11/02/23 11/02/23 11/02/23 Range/Units 06:12 07:00 07:00 RBC 3.93 L (4.40-5.60) X 10*6/uL Hgb 12.4 L (13.0-17.0) g/dL Hct 35.5 L (39.6-50.0) % Plt Count 539 H (140-440) X 10*3/uL BUN/Creatinine Ratio 11.56 L (12.00-20.00) Ratio Glucose 177 H (70-110) mg/dL POC Glucose (mg/dL) 223 H (70-110) mg/dL Hemoglobin A1c (<=6.0) % Total Protein 5.7 L (6.2-8.2) g/dL Albumin 3.1 L (3.8-4.9) g/dL Albumin/Globulin Ratio 1.19 L (1.60-3.17) Ratio 11/02/23 Range/Units 10:55 RBC (4.40-5.60) X 10*6/uL Hgb (13.0-17.0) g/dL Hct (39.6-50.0) % Plt Count (140-440) X 10*3/uL BUN/Creatinine Ratio (12.00-20.00) Ratio Glucose (70-110) mg/dL POC Glucose (mg/dL) 138 H (70-110) mg/dL Hemoglobin A1c (<=6.0) % Total Protein (6.2-8.2) g/dL Albumin (3.8-4.9) g/dL Albumin/Globulin Ratio (1.60-3.17) Ratio Microbiology - Last 24 Hours (Table) 10/30/23 22:45 Anaerobic Culture - Preliminary Thigh - Left 10/30/23 22:45 Gram Stain - Final Thigh - Left Wound Culture - Final Staphylococcus aureus 10/29/23 19:11 Blood Culture - Preliminary Blood 10/29/23 18:40 Blood Culture - Preliminary Blood
--- NOTE | 2023-11-02 15:09 | P.PN ---
Subjective Progress Note Date: 11/02/23 Principal diagnosis: Reason for follow-up is left gluteal/upper thigh abscess Patient is a 63-year-old male with a past medical history significant for pneumonia did have history of chronic back pain and apparently did have injection to the left gluteal area beginning of September 2022 patient now presenting to the ER for evaluation of worsening pain to the left gluteal area, patient was diagnosed with an abscess and the patient is status post surgical drainage of the left upper thigh abscess completed on 10/30/2023 On today's evaluation that is 11/02/2023,the patient remains to be afebrile, patient is on room air not requiring supplemental oxygen and denies any shortness of breath no chest pain or cough.Patient denies having any nausea or vomiting, no abdominal pain and no diarrhea has been reported , Patient came to the left gluteal/appetite has improved. Patient white count 9.22 creatinine 0.9 blood culture negative culture positive for MSSA Objective - Vital Signs Vital signs: Vital Signs Temp 97.6 F 11/02/23 09:18 Pulse 71 11/02/23 09:18 Resp 14 11/02/23 09:18 BP 134/84 11/02/23 09:18 Pulse Ox 98 11/02/23 09:18 FiO2 Intake & Output 11/01/23 11/02/23 11/02/23 18:59 06:59 18:59 Intake Total 600 240 Balance 600 240 Intake: Oral 600 240 Other: Voiding Method Toilet Toilet # Voids 4 3 # Bowel Movements 1 - Exam GENERAL DESCRIPTION: Middle-age male lying in bed in no distress RESPIRATORY SYSTEM: Unlabored breathing , decreased breath sounds at bases HEART: S1 S2 regular rate and rhythm , ABDOMEN: Soft , no tenderness EXTREMITIES: Left upper thigh/gluteal area wound covered with a wound VAC - Labs CBC & Chem 7: 11/02/23 07:00 11/02/23 07:00 Labs: Abnormal Lab Results - Last 24 Hours (Table) 11/01/23 11/01/23 11/01/23 Range/Units 07:15 07:15 12:18 RBC 3.40 L (4.40-5.60) X 10*6/uL Hgb 10.9 L (13.0-17.0) g/dL Hct 31.5 L (39.6-50.0) % MCH 32.1 H (27.0-32.0) pg Plt Count 468 H (140-440) X 10*3/uL POC Glucose (mg/dL) 231 H (70-110) mg/dL Hemoglobin A1c 7.8 H (<=6.0) % 11/01/23 11/01/23 11/02/23 Range/Units 17:37 20:05 06:12 RBC (4.40-5.60) X 10*6/uL Hgb (13.0-17.0) g/dL Hct (39.6-50.0) % MCH (27.0-32.0) pg Plt Count (140-440) X 10*3/uL POC Glucose (mg/dL) 196 H 221 H 223 H (70-110) mg/dL Hemoglobin A1c (<=6.0) % Microbiology - Last 24 Hours (Table) 10/30/23 22:45 Gram Stain - Final Thigh - Left Wound Culture - Final Staphylococcus aureus 10/29/23 19:11 Blood Culture - Preliminary Blood 10/29/23 18:40 Blood Culture - Preliminary Blood Assessment and Plan (1) Abscess, gluteal, left Current Visit: Yes Status: Acute Code(s): L02.31 - CUTANEOUS ABSCESS OF BUTTOCK SNOMED Code(s): 79740971 (2) Cellulitis Current Visit: Yes Status: Acute Code(s): L03.90 - CELLULITIS, UNSPECIFIED SNOMED Code(s): 184139543 (3) Abscess Current Visit: Yes Status: Acute Code(s): L02.91 - CUTANEOUS ABSCESS, UNSPECIFIED SNOMED Code(s): 204951458 (4) MSSA (methicillin susceptible Staphylococcus aureus) infection Current Visit: Yes Status: Acute Code(s): A49.01 - METHICILLIN SUSCEP STAPH INFECTION, UNSP SITE SNOMED Code(s): 935798847 Plan: 1patient presented to hospital with left pleural area pain swelling redness in this patient who did have evidence of fluid collection today concerning for possible abscess with elevated white count likely from gram-positive skin ashleigh less likely gram-negative infection 2-patient is status post surgical drainage and cultures are currently growing MSSA 3-we will discontinue vancomycin and start the patient on cefazolin 2 g every 8 hours midline has been ordered for outpatient IV cefazolin outpatient antibiotic prescription provided to the infusion company is cleared to continue once antibiotics and wound care manage, close outpatient follow-up Dictation was produced using [employer] dictation software. please excuse any grammatical, word or spelling errors. Time with Patient: Less than 30
[2023-11-02 15:44] VITALS: BP 155/87; PULSE 74; RESP 16; TEMP 97.9
== END 2023-11-02 17:30 | disposition home health service (06) | DRG 603 ==
LOC: EC 15:05 → OBSVTOIN 20:35 → 6NMEDSUR 20:35
PROVIDERS: ADMIT Family Medicine; ATTEND Family Medicine
PROC: 0H98XZX Drainage of Buttock Skin, External Approach, Diagnostic (ICD-10-PCS; principal; 2023-10-30 15:30)
PROC: 05HC33Z Insertion of Infusion Device into Left Basilic Vein, Percutaneous Approach (ICD-10-PCS; 2023-11-02 08:25)
DX: L02.31 Cutaneous abscess of buttock (principal); L03.317 Cellulitis of buttock; Z79.899 Other long term (current) drug therapy; F17.210 Nicotine dependence, cigarettes, uncomplicated; Z87.01 Personal history of pneumonia (recurrent); B95.61 Methicillin susceptible Staphylococcus aureus infection as the cause of diseases classified elsewhere
CPT/HCPCS: 36415; 80053; 80202; 82565; 83036; 83605; 85025; 85027; 87040; 87070; 87075; 87077; 87186; 87205; 96361; 96365; 96366; 96367; 96375; 99284

== ENCOUNTER → 2024-04-11 | Outpatient (CLI) | payer BC ==
--- NOTE | 2024-04-11 09:11 | CTL ---
EXAMINATION TYPE: CT Low Dose Lung DATE OF EXAM: 04/11/2024 8:41 AM CLINICAL INDICATION:Male, 63 years old with history of Z12.2 SCREENING; Current smoker, .5 ppd x 40 y ears , history of tobacco use. COMPARISON: None TECHNIQUE: Multiple axial non-contrast scans were obtained from approximately the lung apices through the upper abdomen. Coronal and sagittal reformatted images were obtained. Low dose technique was uti lized. CT DLP: 112.3 mGycm, Automated exposure control for dose reduction was used. CT Contrast: Contrast used: None Oral contrast used: None FINDINGS: ======== Lack of intravenous contrast and low dose technique limits the evaluation of the vascular and soft ti ssue structures. LUNGS: No evidence of pulmonary fibrosis. No evidence of focal consolidation, pneumothorax or pleural effusion. Centrilobular emphysema changes. Nodules: RUL: None. RML: None. RLL: None. KURTIS: None. LLL: None. AIRWAY: Patent and unremarkable. HEART: Size within normal limits. MEDIASTINUM: Prominent borderline enlarged lymph nodes are seen throughout the right low paratracheal adenopathy up to 11 mm in short axis, AP window lymph node measuring up to 10 mm in short axis. Subc arinal measuring up to 10 mm in short axis. VASCULATURE: No aortic aneurysm. MUSCULOSKELETAL: No acute osseous abnormalities SOFT TISSUES/LYMPH NODES: Unremarkable. LOWER NECK: No significant findings. UPPER ABDOMEN: No significant findings. IMPRESSION: 1. No clinically significant pulmonary nodules. 2. Mild emphysema. 3. Prominent/borderline enlarged lymph nodes throughout the mediastinum these favor reactive in the a bsence of risk factors. Consider follow-up in 3 months to ensure stability. CT LUNG RAD AND CT CHEST RECOMMENDATION: Lung-Rad 1 Negative: Continue annual screening with LDCT in 12 months. S Modifier (other clinically significant findings): None Recommend smoking cessation (if current smoker), or continuation of smoking cessation (if prior smoke r). Annual screening for lung cancer with low-dose computed tomography is recommended in adults ages 55 to 77 years who have a 30 pack-year smoking history and currently smoke or have quit within the pa st 15 years. Screening should be discontinued once a person has not smoked for 15 years or develops a health problem that substantially limits life expectancy or the ability or willingness to have curat anthony lung surgery. Lung rads 2021 [email or web address]
== END | disposition home or self-care (01) ==
LOC: RADCTMAIN 08:18
PROVIDERS: ATTEND Family Medicine
DX: Z12.2 Encounter for screening for malignant neoplasm of respiratory organs (principal); J43.2 Centrilobular emphysema; J44.1 Chronic obstructive pulmonary disease with (acute) exacerbation; F17.210 Nicotine dependence, cigarettes, uncomplicated
CPT/HCPCS: 71271

== ENCOUNTER → 2024-06-13 | Outpatient (CLI) | payer BC ==
[2024-06-13 08:37] LABS: African American GFR (CKD) >90 (>60 ml/min/1.73 sqM); Blood Urea Nitrogen 22 mg/dL (9-20); Non-African American GFR(CKD) 85 (>60 ml/min/1.73 sqM)
--- NOTE | 2024-06-13 10:25 | CT ---
EXAMINATION TYPE: CT chest w con CT DLP: 263.8 mGycm, Automated exposure control for dose reduction was used. DATE OF EXAM: 06/13/2024 8:59 AM COMPARISON: 04/11/2024 CLINICAL INDICATION: Male, 64 years old with history of R91.8 ABNORMAL LUNG FIELD FINDINGS; PHH, ABNO RMAL LUNG FIELD FINDINGS TECHNIQUE: Multiple axial images were obtained through the chest. Sagittal and coronal reformats were created for review. MIP was performed on a separate workstation. Contrast used:100 mL of Isovue 300 with IV Contrast (None if empty) Oral contrast used: (None if empty) FINDINGS: LUNGS/ PLEURA: No focal consolidation, pneumothorax or pleural effusion. No greater than 6 mm pulmona ry nodule identified AIRWAY: Patent and unremarkable. HEART: Size within normal limits. MEDIASTINUM: Better appreciation of the mediastinal lymph nodes on today's exam with IV contrast ther e is multiple lymph nodes throughout the mediastinum which are prominent the largest in the right pul monary hilum measuring 25 x 16 mm. r AP window measuring up to 10 mm in short axis, right low paratra cheal measuring up to 10 mm in short axis. Subcarinal measuring up to 11 mm in short axis, VASCULATURE: No aortic aneurysm. MUSCULOSKELETAL: No acute osseous abnormalities SOFT TISSUES/LYMPH NODES: Unremarkable. LOWER NECK: No significant findings. UPPER ABDOMEN: No significant findings. IMPRESSION: Persistent adjacent lymph nodes with the largest in the right pulmonary hilum lymph node measuring 25 x 16 mm which is better visualized with contrast. Additional lymph nodes throughout the mediastinum are present which are better characterized on today's exam due to contrast. Further workup recommende d consider pet/CT for evaluation for metabolic activity to rule out malignancy. [facility], , 06/13/2024 10:22 AM
== END | disposition home or self-care (01) ==
LOC: RADCTMAIN 07:39
PROVIDERS: ATTEND Family Medicine
DX: R91.8 Other nonspecific abnormal finding of lung field (principal)
CPT/HCPCS: 82565; 84520; 71260; 36415; Q9967

== ENCOUNTER → 2024-07-18 | Outpatient (CLI) | payer BC ==
--- NOTE | 2024-07-21 07:35 | PE ---
EXAMINATION TYPE: PET CT fusion whole body DATE OF EXAM: 07/18/2024 CLINICAL INDICATION:Male, 64 years old with history of R59.0 ENLARGED LYMPH NODES; TECHNIQUE: Following the intravenous administration of 11.82 mCi of F-18 FDG, whole body images are performed from the skull vertex through to the feet. Images are reviewed on the computer in the cor onal, axial, and sagittal planes. Reconstructed rotating images are created on independent workstati on and reviewed on the computer. A non-contrast CT is performed in conjunction with the PET scan. G lucose level 205 mg/dL CT DLP: 873.67 mGycm, Automated exposure control for dose reduction was used. COMPARISON: CT 06/13/2024, 04/11/2024, PET/CT None, MRI: None FINDINGS: Mediastinal SUV mean is 2.4. Hepatic parenchyma SUV mean is 3.0. SKULL BASE AND NECK: No suspicious radiotracer activity. CHEST, MEDIASTINUM, AND HILAR REGION: Redemonstration of mediastinal and hilar lymphadenopathy. Example includes a left paratracheal lymph node measuring up to 1.6 cm in short axis. Demonstrates maximum SUV of 4.0. Right hilar lymph node de monstrates a maximum SUV of 3.4. ABDOMEN AND PELVIS: No suspicious radiotracer activity. MUSCULOSKELETAL STRUCTURES: No suspicious radiotracer activity. OTHER CT: Mild mucosal thickening of paranasal sinuses. Remote distal left clavicular fracture with f ixation hardware. Small aortic valvular calcifications. Minimal atherosclerotic calcification of the aorta and its branches. Small fat filled umbilical hernia. IMPRESSION: Redemonstration of mediastinal and bilateral hilar adenopathy which is only mildly FDG activity. Prob ably reactive to an infectious/inflammatory process. Metastasis/neoplasm is not entirely excluded. Co uld be seen with sarcoidosis versus other etiologies. Correlate clinically. Follow-up CT in 6 months is recommended to assess for stability. [facility], , 07/21/2024 7:33 AM
== END | disposition home or self-care (01) ==
LOC: RADPETMAIN 06:17
PROVIDERS: ATTEND Family Medicine
DX: R59.0 Localized enlarged lymph nodes (principal)
CPT/HCPCS: 78816; A9552